=== PATIENT | female | born 1935 | race Caucasian/White ===

== ENCOUNTER 2018-01-10 01:55 | Emergency (ER) | payer MEDICARE, OTHER ==
[~2018-01-10] VITALS: Ht 167.6 cm; Wt 60.0 kg
[~2018-01-10 01:55] MED LIST: ATE25T PO; COU1T PO; LEVO50TA67 PO; MULT-1073 PO; NOR5T PO; OMEG1CAP46 PO; SIMV10TA2 PO; VALS1TAB PO; VENL-191 PO
[2018-01-10] MEDS ORDERED: morphine 4 MG/ML inj SYRINge IV ONE (02:20)
[2018-01-10] MEDS ORDERED: ondansetron/PF 4mg/2ml inj IV ONE (02:20)
[2018-01-10] MEDS ORDERED: hydrALAZINE 20mg/ml inj. IV ONE (02:20)
[2018-01-10] MEDS ORDERED: normal saline 1000ML IV soln IVB ONE (02:20)
[2018-01-10 02:39] LABS: BASOPHILS % (AUTO) 0.3 % (0-1); EOSINOPHILS % (AUTO) 0 % (0-6); HEMATOCRIT 42.9 % (35.0-45.0); HEMOGLOBIN 14.6 g/dl (12.0-16.0); LYMPHOCYTES # (AUTO) 1.1 X10'3 (1.1-4.8); LYMPHOCYTES % (AUTO) 10.7 % (21-51); MEAN CORPUSCULAR HEMOGLOBIN 31.2 PG (27.0-31.0); MEAN CORPUSCULAR HGB CONC 34.1 % (33.0-36.5); MEAN CORPUSCULAR VOLUME 91.5 FL (78-98); MEAN PLATELET VOLUME 8.5 FL (7.4-10.4); MONOCYTES # (AUTO) 0.3 X10'3 (0-0.9); MONOCYTES % (AUTO) 2.6 % (2-12); NEUTROPHILS # (AUTO) 8.8 X10'3 (1.8-7.7); NEUTROPHILS % (AUTO) 86.4 % (42-75); PLATELET COUNT 196 X10'3 (140-440); RED BLOOD COUNT 4.69 X10'6 (4.20-5.60); RED CELL DISTRIBUTION WIDTH 13.2 % (11.5-14.5); WHITE BLOOD COUNT 10.2 X10'3 (4.5-11.0)
[2018-01-10 02:54] LABS: ALANINE AMINOTRANSFERASE 24 U/L (12-78); ALBUMIN 3.4 G/DL (3.4-5.0); ALBUMIN/GLOBULIN RATIO 0.7 (1.1-1.5); ALKALINE PHOSPHATASE 78 IU/L (46-116); ANION GAP 10 (8-16); ASPARTATE AMINO TRANSFERASE 24 U/L (10-37); BILIRUBIN,TOTAL 0.4 MG/DL (0.1-1.0); BLOOD UREA NITROGEN 21 MG/DL (7-18); BUN/CREATININE RATIO 18.9 (6.6-38.0); CALCIUM 9.7 MG/DL (8.5-10.1); CHLORIDE 104 MMOL/L (99-107); CREATININE 1.11 MG/DL (0.40-0.90); GLUCOSE 181 MG/DL (70-104); LIPASE 58 U/L (73-393); POTASSIUM 3.7 MMOL/L (3.5-5.1); SODIUM 143 MMOL/L (135-145); TOTAL CARBON DIOXIDE 28.8 MMOL/L (24-32); TOTAL PROTEIN 8.4 G/DL (6.4-8.2); eGFR 47 ML/MIN
[2018-01-10 03:02] VITALS: BP 145/57
[2018-01-10] MEDS ORDERED: ONDA4TAB9 PO (03:23)
[2018-01-10] MEDS ORDERED: ESOM40CA30 PO (16:56)
[2018-01-10] MEDS ORDERED: AFLI2VIA RIGHTEYE (16:56)
[2018-01-10] MEDS ORDERED: ASPI-611 PO (16:56)
[2018-01-10] MEDS ORDERED: DONE10TA6 PO (16:56)
[2018-01-10] MEDS ORDERED: NEBI5TAB10 PO (16:56)
[2018-01-10] MEDS ORDERED: DORZ10DR18 RIGHTEYE (16:56)
[2018-01-10] MEDS ORDERED: EST1T PO (16:56)
[2018-01-10] MEDS ORDERED: GABA-532 PO (16:56)
[2018-01-10] MEDS ORDERED: VALS1TAB75 PO (17:02)
[2018-01-11] MEDS ORDERED: DORZ10DR18 RIGHTEYE (14:54)
[2018-01-11] MEDS ORDERED: FLUO10CA30 PO (15:02)
[2018-01-11] MEDS ORDERED: METO-539 PO (15:02)
== END 2018-01-10 03:39 | disposition home or self-care (01) ==
LOC: ER 01:56
DX: T62.8X1A Toxic effect of other specified noxious substances eaten as food, accidental (unintentional), initial encounter (principal); R19.7 Diarrhea, unspecified; E78.00 Pure hypercholesterolemia, unspecified; G89.29 Other chronic pain; Z90.710 Acquired absence of both cervix and uterus; Z98.890 Other specified postprocedural states; Z79.01 Long term (current) use of anticoagulants; Z79.899 Other long term (current) drug therapy; Y92.89 Other specified places as the place of occurrence of the external cause
CPT/HCPCS: 36415; 80053; 83690; 85025; 96374; 96375; 99284; J0360; J2270; J2405; J7030

== ENCOUNTER 2018-01-10 14:09 | Inpatient (IN) | payer MEDICARE, OTHER ==
[~2018-01-10] VITALS: Ht 167.6 cm; Wt 59.8 kg
[~2018-01-10 14:09] MED LIST changes: +ONDA4TAB9 PO
[2018-01-10 15:07] LABS: BASOPHILS % (AUTO) 0.4 % (0-1); EOSINOPHILS % (AUTO) 0 % (0-6); HEMATOCRIT 43.5 % (35.0-45.0); HEMOGLOBIN 14.5 g/dl (12.0-16.0); LYMPHOCYTES # (AUTO) 0.8 X10'3 (1.1-4.8); LYMPHOCYTES % (AUTO) 7.1 % (21-51); MEAN CORPUSCULAR HEMOGLOBIN 31.1 PG (27.0-31.0); MEAN CORPUSCULAR HGB CONC 33.3 % (33.0-36.5); MEAN CORPUSCULAR VOLUME 93.6 FL (78-98); MEAN PLATELET VOLUME 8.8 FL (7.4-10.4); MONOCYTES # (AUTO) 0.4 X10'3 (0-0.9); MONOCYTES % (AUTO) 3.9 % (2-12); NEUTROPHILS # (AUTO) 9.4 X10'3 (1.8-7.7); NEUTROPHILS % (AUTO) 88.6 % (42-75); PLATELET COUNT 204 X10'3 (140-440); RED BLOOD COUNT 4.65 X10'6 (4.20-5.60); WHITE BLOOD COUNT 10.6 X10'3 (4.5-11.0)
[2018-01-10 15:13] LABS: ALANINE AMINOTRANSFERASE 25 U/L (12-78); ALBUMIN 3.2 G/DL (3.4-5.0); ALBUMIN/GLOBULIN RATIO 0.7 (1.1-1.5); ALKALINE PHOSPHATASE 73 IU/L (46-116); ANION GAP 8 (8-16); ASPARTATE AMINO TRANSFERASE 20 U/L (10-37); BILIRUBIN,TOTAL 0.5 MG/DL (0.1-1.0); BLOOD UREA NITROGEN 19 MG/DL (7-18); BUN/CREATININE RATIO 19.2 (6.6-38.0); CALCIUM 9.1 MG/DL (8.5-10.1); CHLORIDE 104 MMOL/L (99-107); CREATININE 0.99 MG/DL (0.40-0.90); GLUCOSE 157 MG/DL (70-104); POTASSIUM 3.7 MMOL/L (3.5-5.1); SODIUM 140 MMOL/L (135-145); TOTAL CARBON DIOXIDE 28.3 MMOL/L (24-32); TOTAL PROTEIN 8.1 G/DL (6.4-8.2); eGFR 53 ML/MIN
[2018-01-10 15:33] LABS: CLARITY,URINE SLIGHTLY CLOUDY (Clear); COLOR,URINE YELLOW (Yellow); GLUCOSE, URINE NEGATIVE (Neg); KETONES,URINE NEGATIVE (Neg); LEUKOCYTE ESTERASE ,URINE NEGATIVE (Neg); NITRITES, URINE NEGATIVE (Neg); OCCULT BLOOD,URINE NEGATIVE (Neg); PROTEIN,URINE 30 mg/dl (Neg); UROBILINOGEN,URINE 0.2 E.U/dL (0.2-1.0)
[2018-01-10 15:37] LABS: UA COLLECTION TYPE CLN CATCH MIDSTREAM
[2018-01-10 15:45] LABS: BACTERIA,URINE 2+ /HPF (Neg); RBC,URINE 0-2 /HPF (0-2); SQUAMOUS EPITHELIAL CELL,UR MANY /LPF (FEW)
[2018-01-10] MEDS ORDERED: mag hydrox/Alum hydrox/simeth 30ml oral suspension PO PRN (16:40)
[2018-01-10] MEDS ORDERED: ondansetron/PF 4mg/2ml inj IV PRN (16:40)
[2018-01-10] MEDS ORDERED: magnesium hydroxide 30ml (MOM) UD suspension PO PRN (16:40)
[2018-01-10 16:50] LABS: MAGNESIUM 1.7 MG/DL (1.5-2.4); PARTIAL THROMBOPLASTIN TIME 25 SECONDS (22-32)
[2018-01-10] MEDS ORDERED: DORZ10DR18 RIGHTEYE (16:56)
[2018-01-10] MEDS ORDERED: ESOM40CA30 PO (16:56)
[2018-01-10] MEDS ORDERED: NEBI5TAB10 PO (16:56)
[2018-01-10] MEDS ORDERED: DONE10TA6 PO (16:56)
[2018-01-10] MEDS ORDERED: ASPI-611 PO (16:56)
[2018-01-10] MEDS ORDERED: GABA-532 PO (16:56)
[2018-01-10] MEDS ORDERED: AFLI2VIA RIGHTEYE (16:56)
[2018-01-10] MEDS ORDERED: EST1T PO (16:56)
[2018-01-10] MEDS ORDERED: VALS1TAB75 PO (17:02)
[2018-01-10] MEDS: normal saline 1000ml 1,000 ML IV SCH (17:20)
[2018-01-10 19:00] VITALS: BP 152/64
[2018-01-10] MEDS: acetaminophen 325mg tablet PO PRN (20:57)
[2018-01-10] MEDS: atorvastatin 10mg tablet PO SCH (20:57)
[2018-01-10] MEDS: diatr meglu/diatrizoate 30ml oral sol.-(3 dose) bottle PO SCH (20:58)
[2018-01-10 23:00] VITALS: BP 170/66
[2018-01-11] MEDS: morphine 4 MG/ML inj SYRINge IV PRN ×4 (02:31→20:47)
[2018-01-11] MEDS: normal saline 1000ml 1,000 ML IV SCH ×3 (02:37→22:37)
[2018-01-11 03:00] VITALS: BP 169/71
[2018-01-11] MEDS: acetaminophen 325mg tablet PO PRN ×2 (04:41→08:51)
[2018-01-11 05:28] LABS: ALBUMIN 2.9 G/DL (3.4-5.0); ANION GAP 5 (8-16); BASOPHILS % (AUTO) 0.1 % (0-1); BLOOD UREA NITROGEN 18 MG/DL (7-18); BUN/CREATININE RATIO 19.6 (6.6-38.0); CALCIUM 8.4 MG/DL (8.5-10.1); CHLORIDE 105 MMOL/L (99-107); CREATININE 0.92 MG/DL (0.40-0.90); EOSINOPHILS % (AUTO) 0 % (0-6); GLUCOSE 152 MG/DL (70-104); HEMATOCRIT 41.1 % (35.0-45.0); HEMOGLOBIN 13.8 g/dl (12.0-16.0); LYMPHOCYTES # (AUTO) 1.3 X10'3 (1.1-4.8); LYMPHOCYTES % (AUTO) 10.6 % (21-51); MEAN CORPUSCULAR HGB CONC 33.6 % (33.0-36.5); MEAN CORPUSCULAR VOLUME 92.2 FL (78-98); MEAN PLATELET VOLUME 9.2 FL (7.4-10.4); MONOCYTES # (AUTO) 0.5 X10'3 (0-0.9); MONOCYTES % (AUTO) 4.3 % (2-12); NEUTROPHILS # (AUTO) 10.4 X10'3 (1.8-7.7); PLATELET COUNT 197 X10'3 (140-440); POTASSIUM 3.6 MMOL/L (3.5-5.1); RED BLOOD COUNT 4.46 X10'6 (4.20-5.60); RED CELL DISTRIBUTION WIDTH 13.2 % (11.5-14.5); SODIUM 139 MMOL/L (135-145); TOTAL CARBON DIOXIDE 29.5 MMOL/L (24-32); WHITE BLOOD COUNT 12.3 X10'3 (4.5-11.0); eGFR 58 ML/MIN
[2018-01-11 06:00] VITALS: BP 169/71
[2018-01-11] MEDS ORDERED: FISH OIL PO SCH ×2 (08:00)
[2018-01-11] MEDS ORDERED: FATTY ACIDS PO SCH (08:00)
[2018-01-11] MEDS ORDERED: [UNRECOGNIZED DRUG - OTHER] PO SCH (08:00)
[2018-01-11] MEDS ORDERED: atenolol 25mg tablet PO SCH (08:00)
[2018-01-11] MEDS ORDERED: PHYTONADIONE PO SCH (08:00)
[2018-01-11] MEDS ORDERED: OMEGA PO SCH (08:00)
[2018-01-11] MEDS ORDERED: CALCIUM CARBONATE PO SCH (08:00)
[2018-01-11] MEDS ORDERED: MULTIVITAMIN PO SCH (08:00)
[2018-01-11] MEDS ORDERED: FOLIC ACID PO SCH (08:00)
[2018-01-11] MEDS: diatr meglu/diatrizoate 30ml oral sol.-(3 dose) bottle PO SCH ×2 (08:31→10:45)
[2018-01-11] MEDS: venlafaxine 37.5mg tablet PO SCH (08:31)
[2018-01-11] MEDS: multivitamins, therapeutics tablet PO SCH (08:31)
[2018-01-11] MEDS ORDERED: amLODIPine 5mg tablet PO ONE (08:35)
[2018-01-11] MEDS ORDERED: acetaminophen 325mg tablet PO PRN (08:35)
[2018-01-11] MEDS ORDERED: iohexol 300mg/ml 100ml inj. ONE (10:11)
[2018-01-11 11:00] VITALS: BP 186/65
[2018-01-11] MEDS ORDERED: DORZ10DR18 RIGHTEYE (14:54)
[2018-01-11 15:00] VITALS: BP 184/86
[2018-01-11] MEDS ORDERED: METO-539 PO (15:02)
[2018-01-11] MEDS ORDERED: FLUO10CA30 PO (15:02)
[2018-01-11 19:00] VITALS: BP 165/67
[2018-01-11] MEDS: atorvastatin 10mg tablet PO SCH (20:17)
[2018-01-11 23:00] VITALS: BP 157/64
[2018-01-12] VITALS (11 sets, daily range): BP systolic 125–177; BP diastolic 62–107
[2018-01-12] MEDS: morphine 4 MG/ML inj SYRINge IV PRN ×3 (03:14→18:56)
[2018-01-12 05:41] LABS: BASOPHILS % (AUTO) 0.2 % (0-1); EOSINOPHILS % (AUTO) 0.1 % (0-6); HEMOGLOBIN 13.4 g/dl (12.0-16.0); LYMPHOCYTES # (AUTO) 1.6 X10'3 (1.1-4.8); LYMPHOCYTES % (AUTO) 16.2 % (21-51); MEAN CORPUSCULAR HEMOGLOBIN 31.2 PG (27.0-31.0); MEAN CORPUSCULAR HGB CONC 34.4 % (33.0-36.5); MEAN CORPUSCULAR VOLUME 90.6 FL (78-98); MEAN PLATELET VOLUME 9.1 FL (7.4-10.4); MONOCYTES # (AUTO) 1.1 X10'3 (0-0.9); MONOCYTES % (AUTO) 11.2 % (2-12); NEUTROPHILS % (AUTO) 72.3 % (42-75); PLATELET COUNT 185 X10'3 (140-440); RED CELL DISTRIBUTION WIDTH 13.1 % (11.5-14.5); WHITE BLOOD COUNT 9.7 X10'3 (4.5-11.0)
[2018-01-12 05:45] LABS: ALBUMIN 2.6 G/DL (3.4-5.0); ANION GAP 8 (8-16); BLOOD UREA NITROGEN 12 MG/DL (7-18); CALCIUM 7.7 MG/DL (8.5-10.1); CHLORIDE 104 MMOL/L (99-107); CREATININE 0.75 MG/DL (0.40-0.90); GLUCOSE 126 MG/DL (70-104); SODIUM 139 MMOL/L (135-145); TOTAL CARBON DIOXIDE 27.3 MMOL/L (24-32); eGFR 74 ML/MIN
[2018-01-12] MEDS: multivitamins, therapeutics tablet PO SCH (08:00)
[2018-01-12] MEDS ORDERED: potassium Cl 20 mEq SR tablet PO PRN ×2 (08:20)
[2018-01-12] MEDS ORDERED: potassium Cl 40MEQ/NS 500ml 500 ML IV PRN ×2 (08:20)
[2018-01-12] MEDS: hydrALAZINE 20mg/ml inj. IV PRN (12:20)
[2018-01-12] MEDS ORDERED: BUPIVAcaine/PF 7.5mg/ml (0.75%) 10ml vial ONE (13:56)
[2018-01-12] MEDS ORDERED: LIDOcaine 1% 30ml preserv. free vial ONE (13:56)
[2018-01-12] MEDS: normal saline 1000ml 1,000 ML IV SCH ×2 (14:00→19:43)
[2018-01-12] MEDS ORDERED: sevoflurane 250ml liquid IH ONE (14:40)
[2018-01-12] MEDS ORDERED: fentaNYL/PF 50MCG/1 ML 2ML syringe ONE ×3 (14:43→17:30)
[2018-01-12] MEDS ORDERED: HYDROmorphone 1 mg/ml syringe IV PRN ×2 (15:25→18:20)
[2018-01-12] MEDS ORDERED: ringers solution, lacted 1,000 ML IV SCH (15:25)
[2018-01-12] MEDS ORDERED: ondansetron/PF 4mg/2ml inj IV PRN ×2 (15:25→18:20)
[2018-01-12] MEDS ORDERED: morphine 4 MG/ML inj SYRINge IV PRN ×2 (15:25→18:20)
[2018-01-12] MEDS ORDERED: ROPIVAcaine 0.5% (5mg/ml) 30ml vial ONE (16:36)
[2018-01-12] MEDS ORDERED: glycopyrrolate 0.2mg/ml inj ONE (17:34)
[2018-01-12] MEDS ORDERED: rocuronium 10mg/ml inj IV ONE ×2 (17:34→18:05)
[2018-01-12] MEDS ORDERED: dexamethasone sod phosphate 4mg/ml inj. ONE (17:34)
[2018-01-12] MEDS ORDERED: neostigmine methylsulfate 1 MG/ML 10ml vial ONE (17:34)
[2018-01-12] MEDS ORDERED: propofol inj 20 ML IV ONE (17:34)
[2018-01-12] MEDS ORDERED: LIDOcaine 2% (20mg/ml) 5ml vial ONE (17:34)
[2018-01-12] MEDS ORDERED: ondansetron/PF 4mg/2ml inj ONE (17:34)
[2018-01-12] MEDS ORDERED: CADD PCA waste documentation MC PRN (18:40)
[2018-01-12] MEDS ORDERED: naloxone 0.4 mg/ml inj IV PRN (18:40)
[2018-01-12] MEDS: HYDROmorphone/NS 1 mg/ml CADD 50 ML IV SCH ×4 (19:00→23:00)
[2018-01-12] MEDS: atorvastatin 10mg tablet PO SCH (21:00)
[2018-01-13] VITALS: BP 136/69
[2018-01-13] MEDS: HYDROmorphone/NS 1 mg/ml CADD 50 ML IV SCH ×6 (01:00→10:57)
[2018-01-13 04:15] VITALS: BP 130/64
[2018-01-13] MEDS: normal saline 1000ml 1,000 ML IV SCH ×3 (04:37→17:24)
[2018-01-13 05:50] LABS: BASOPHILS % (AUTO) 0 % (0-1); EOSINOPHILS % (AUTO) 0 % (0-6); HEMATOCRIT 38.9 % (35.0-45.0); HEMOGLOBIN 13.1 g/dl (12.0-16.0); LYMPHOCYTES # (AUTO) 1.1 X10'3 (1.1-4.8); LYMPHOCYTES % (AUTO) 9.6 % (21-51); MEAN CORPUSCULAR HEMOGLOBIN 31.1 PG (27.0-31.0); MEAN CORPUSCULAR HGB CONC 33.7 % (33.0-36.5); MEAN CORPUSCULAR VOLUME 92.3 FL (78-98); MONOCYTES # (AUTO) 0.8 X10'3 (0-0.9); MONOCYTES % (AUTO) 7.5 % (2-12); NEUTROPHILS # (AUTO) 9.3 X10'3 (1.8-7.7); NEUTROPHILS % (AUTO) 82.9 % (42-75); PLATELET COUNT 182 X10'3 (140-440); RED BLOOD COUNT 4.22 X10'6 (4.20-5.60); RED CELL DISTRIBUTION WIDTH 13.2 % (11.5-14.5); WHITE BLOOD COUNT 11.3 X10'3 (4.5-11.0)
[2018-01-13 05:54] LABS: ANION GAP 6 (8-16); BLOOD UREA NITROGEN 18 MG/DL (7-18); BUN/CREATININE RATIO 14.8 (6.6-38.0); CALCIUM 7.2 MG/DL (8.5-10.1); CHLORIDE 107 MMOL/L (99-107); CREATININE 1.22 MG/DL (0.40-0.90); GLUCOSE 107 MG/DL (70-104); MAGNESIUM 1.5 MG/DL (1.5-2.4); POTASSIUM 3.5 MMOL/L (3.5-5.1); SODIUM 142 MMOL/L (135-145); TOTAL CARBON DIOXIDE 29.4 MMOL/L (24-32); eGFR 42 ML/MIN
[2018-01-13 07:22] LABS: BANDS% (MANUAL) 15 % (0-10); LYMPHOCYTES % (MANUAL) 4 % (21-51); MONOCYTES % (MANUAL) 9 % (2-12); NEUTROPHILS % (MANUAL) 72 % (42-75); TOTAL CELLS COUNTED 100
[2018-01-13 07:23] LABS: PLATELET ESTIMATE NORMAL
[2018-01-13 08:00] VITALS: BP 101/62
[2018-01-13] MEDS: multivitamins, therapeutics tablet PO SCH (08:00)
[2018-01-13] MEDS ORDERED: HYDROmorphone 2mg/ml vial IV PRN ×2 (10:25)
[2018-01-13] MEDS: venlafaxine 37.5mg tablet PO SCH (10:48)
[2018-01-13 11:00] VITALS: BP 137/63
[2018-01-13] MEDS: HYDROmorphone 1 mg/ml syringe IV PRN ×3 (12:51→20:42)
[2018-01-13 19:05] VITALS: BP 155/71
[2018-01-13] MEDS: atorvastatin 10mg tablet PO SCH (20:42)
[2018-01-14 00:24] VITALS: BP 151/67
[2018-01-14] MEDS: HYDROmorphone 1 mg/ml syringe IV PRN ×5 (01:02→22:01)
[2018-01-14] MEDS: normal saline 1000ml 1,000 ML IV SCH ×3 (01:52→23:30)
[2018-01-14 05:10] LABS: BASOPHILS % (AUTO) 0 % (0-1); EOSINOPHILS % (AUTO) 0 % (0-6); HEMATOCRIT 37.3 % (35.0-45.0); HEMOGLOBIN 12.5 g/dl (12.0-16.0); LYMPHOCYTES % (AUTO) 6.9 % (21-51); MEAN CORPUSCULAR HGB CONC 33.6 % (33.0-36.5); MEAN CORPUSCULAR VOLUME 92.2 FL (78-98); MEAN PLATELET VOLUME 8.7 FL (7.4-10.4); MONOCYTES # (AUTO) 1.1 X10'3 (0-0.9); NEUTROPHILS # (AUTO) 12.2 X10'3 (1.8-7.7); NEUTROPHILS % (AUTO) 85.1 % (42-75); PLATELET COUNT 163 X10'3 (140-440); RED BLOOD COUNT 4.05 X10'6 (4.20-5.60); RED CELL DISTRIBUTION WIDTH 13.6 % (11.5-14.5); WHITE BLOOD COUNT 14.3 X10'3 (4.5-11.0)
[2018-01-14 05:49] LABS: ALBUMIN 1.9 G/DL (3.4-5.0); ANION GAP 10 (8-16); BLOOD UREA NITROGEN 16 MG/DL (7-18); CALCIUM 7.6 MG/DL (8.5-10.1); CHLORIDE 109 MMOL/L (99-107); CREATININE 0.89 MG/DL (0.40-0.90); GLUCOSE 87 MG/DL (70-104); MAGNESIUM 1.6 MG/DL (1.5-2.4); POTASSIUM 3.1 MMOL/L (3.5-5.1); SODIUM 144 MMOL/L (135-145); TOTAL CARBON DIOXIDE 24.8 MMOL/L (24-32); eGFR 60 ML/MIN
[2018-01-14 07:21] VITALS: BP 183/90
[2018-01-14 07:22] VITALS: BP 165/86
[2018-01-14] MEDS ORDERED: HYDROCHLOROTHIAZIDE PO SCH (08:00)
[2018-01-14] MEDS ORDERED: [UNRECOGNIZED DRUG - OTHER] PO SCH (08:00)
[2018-01-14] MEDS ORDERED: VALSARTAN PO SCH (08:00)
[2018-01-14] MEDS: ipratropium/albuterol 3ml nebule NEB SCH ×3 (08:14→20:56)
[2018-01-14] MEDS ORDERED: multivitamin oral liquid (Certavite) 5ml cup PO SCH (08:51)
[2018-01-14] MEDS ORDERED: potassium Cl oral solution 20 MEQ/15 ML PO PRN (08:52)
[2018-01-14] MEDS ORDERED: pantoprazole 40MG/NS 100ML BAG 100 ML IV SCH (08:55)
[2018-01-14] MEDS: cefepime 1GM/NS ADD-VANTAGE 100 ML IV SCH ×3 (09:18→23:29)
[2018-01-14] MEDS: gabapentin 300mg capsule PO SCH ×3 (09:20→23:29)
[2018-01-14] MEDS: venlafaxine 37.5mg tablet PO SCH (09:20)
[2018-01-14] MEDS: levoTHYROXINE 75mcg tablet PO SCH (09:21)
[2018-01-14] MEDS: HYDROchlorothiazide 12.5mg capsule PO SCH (09:21)
[2018-01-14] MEDS: dorzolamide/timolol (Cosopt) ophthalmic drops 10ml bottle RIGHTEYE SCH ×2 (09:22→19:41)
[2018-01-14] MEDS: potassium Cl oral solution 20 MEQ/15 ML PO PRN ×3 (09:23→20:40)
[2018-01-14] MEDS: FLUoxetine 10mg capsule PO SCH (10:28)
[2018-01-14] MEDS: pantoprazole 40 MG vial IV SCH (10:28)
[2018-01-14 11:36] VITALS: BP 166/77
[2018-01-14 18:00] VITALS: BP 177/84
[2018-01-14] MEDS: hydrALAZINE 20mg/ml inj. IV PRN (18:37)
[2018-01-14 19:05] VITALS: BP 164/62
[2018-01-14] MEDS: atorvastatin 10mg tablet PO SCH (19:39)
[2018-01-14 21:11] LABS: CLARITY,URINE CLEAR (Clear); COLOR,URINE YELLOW (Yellow); GLUCOSE, URINE NEGATIVE (Neg); KETONES,URINE 40 mg/dl (Neg); LEUKOCYTE ESTERASE ,URINE NEGATIVE (Neg); NITRITES, URINE NEGATIVE (Neg); OCCULT BLOOD,URINE MODERATE (Neg); PROTEIN,URINE TRACE mg/dl (Neg); UROBILINOGEN,URINE 0.2 E.U/dL (0.2-1.0)
[2018-01-14 21:17] LABS: UA COLLECTION TYPE NON-SPECIFIED
[2018-01-14 21:18] LABS: RBC,URINE 20-50 /HPF (0-2); WBC,URINE 0-4 /HPF (0-4)
[2018-01-14 21:19] LABS: BACTERIA,URINE NONE SEEN /HPF (Neg); SQUAMOUS EPITHELIAL CELL,UR FEW /LPF (FEW); YEAST FEW /HPF (NEGATIVE)
[2018-01-14] MEDS ORDERED: HYDROmorphone 1 mg/ml syringe IV ONE (23:50)
[2018-01-15] VITALS: BP 166/75
[2018-01-15] MEDS: HYDROmorphone 1 mg/ml syringe IV PRN ×4 (01:23→22:06)
[2018-01-15] MEDS: ipratropium/albuterol 3ml nebule NEB SCH ×4 (02:31→21:17)
[2018-01-15 04:55] LABS: BASOPHILS % (AUTO) 0.2 % (0-1); EOSINOPHILS % (AUTO) 0 % (0-6); HEMATOCRIT 37.1 % (35.0-45.0); HEMOGLOBIN 12.4 g/dl (12.0-16.0); LYMPHOCYTES # (AUTO) 1.1 X10'3 (1.1-4.8); LYMPHOCYTES % (AUTO) 6.7 % (21-51); MEAN CORPUSCULAR HEMOGLOBIN 30.8 PG (27.0-31.0); MEAN CORPUSCULAR HGB CONC 33.4 % (33.0-36.5); MEAN CORPUSCULAR VOLUME 92.3 FL (78-98); MEAN PLATELET VOLUME 8.4 FL (7.4-10.4); MONOCYTES # (AUTO) 0.9 X10'3 (0-0.9); MONOCYTES % (AUTO) 5.2 % (2-12); NEUTROPHILS # (AUTO) 14.7 X10'3 (1.8-7.7); NEUTROPHILS % (AUTO) 87.9 % (42-75); PLATELET COUNT 199 X10'3 (140-440); RED BLOOD COUNT 4.02 X10'6 (4.20-5.60); RED CELL DISTRIBUTION WIDTH 13.4 % (11.5-14.5); WHITE BLOOD COUNT 16.7 X10'3 (4.5-11.0)
[2018-01-15 05:16] LABS: ALBUMIN 1.6 G/DL (3.4-5.0); ANION GAP 12 (8-16); BLOOD UREA NITROGEN 14 MG/DL (7-18); BUN/CREATININE RATIO 17.1 (6.6-38.0); CHLORIDE 107 MMOL/L (99-107); CREATININE 0.82 MG/DL (0.40-0.90); GLUCOSE 96 MG/DL (70-104); MAGNESIUM 1.7 MG/DL (1.5-2.4); POTASSIUM 3.3 MMOL/L (3.5-5.1); SODIUM 141 MMOL/L (135-145); TOTAL CARBON DIOXIDE 22.2 MMOL/L (24-32); eGFR 66 ML/MIN
[2018-01-15 07:00] VITALS: BP 181/82
[2018-01-15] MEDS ORDERED: pantoprazole 40mg Tablet.DR PO SCH (07:30)
[2018-01-15] MEDS: pantoprazole 40 MG vial IV SCH (07:46)
[2018-01-15] MEDS: morphine 4 MG/ML inj SYRINge IV PRN ×2 (07:46→21:02)
[2018-01-15] MEDS: cefepime 1GM/NS ADD-VANTAGE 100 ML IV SCH ×3 (07:46→23:28)
[2018-01-15] MEDS: FLUoxetine 10mg capsule PO SCH (07:47)
[2018-01-15] MEDS: levoTHYROXINE 75mcg tablet PO SCH (07:47)
[2018-01-15] MEDS: HYDROchlorothiazide 12.5mg capsule PO SCH (07:47)
[2018-01-15] MEDS: gabapentin 300mg capsule PO SCH ×3 (07:47→23:28)
[2018-01-15] MEDS: venlafaxine 37.5mg tablet PO SCH (07:48)
[2018-01-15] MEDS: dorzolamide/timolol (Cosopt) ophthalmic drops 10ml bottle RIGHTEYE SCH ×2 (07:48→21:02)
[2018-01-15 09:51] VITALS: BP 188/88
[2018-01-15] MEDS: hydrALAZINE 20mg/ml inj. IV PRN (09:56)
[2018-01-15 11:00] VITALS: BP 170/58
[2018-01-15] MEDS: normal saline 1000ml 1,000 ML IV SCH ×2 (11:55→22:34)
[2018-01-15] MEDS ORDERED: Dextrose 10%-water IV solution 1,000 ML IV PRN (14:36)
[2018-01-15] MEDS ORDERED: fat emulsion IV 181.82 ML, MVI, adult No.4 with vit. K 4.55 ML, Trace element-5 inj. 0.... IV SCH ×4 (14:36)
[2018-01-15] MEDS ORDERED: magnesium 1gm/100ml D5W IVPB 50 ML IV PRN (14:40)
[2018-01-15] MEDS ORDERED: magnesium 4gm in 100ml NS 100 ML IV PRN (14:40)
[2018-01-15] MEDS ORDERED: magnesium Cl slow-release 64mg tablet PO PRN (14:40)
[2018-01-15] MEDS ORDERED: fat emulsion IV 200 ML, MVI, adult No.4 with vit. K 10 ML, Trace element-5 inj. 1 ML in... IV SCH ×4 (16:05)
[2018-01-15 16:35] LABS: ALANINE AMINOTRANSFERASE 14 U/L (12-78); ALBUMIN 1.7 G/DL (3.4-5.0); ALBUMIN/GLOBULIN RATIO 0.4 (1.1-1.5); ALKALINE PHOSPHATASE 72 IU/L (46-116); ANION GAP 9 (8-16); ASPARTATE AMINO TRANSFERASE 21 U/L (10-37); BILIRUBIN,TOTAL 0.6 MG/DL (0.1-1.0); BLOOD UREA NITROGEN 14 MG/DL (7-18); BUN/CREATININE RATIO 17.5 (6.6-38.0); CALCIUM 7.7 MG/DL (8.5-10.1); CHLORIDE 104 MMOL/L (99-107); GLUCOSE 84 MG/DL (70-104); MAGNESIUM 1.8 MG/DL (1.5-2.4); PHOSPHORUS 1.8 MG/DL (2.3-4.5); POTASSIUM 3.3 MMOL/L (3.5-5.1); PREALBUMIN 8.4 MG/DL (19-36); SODIUM 139 MMOL/L (135-145); TOTAL CARBON DIOXIDE 25.6 MMOL/L (24-32); TRIGLYCERIDES 91 MG/DL (20-135); eGFR 68 ML/MIN
[2018-01-15] MEDS ORDERED: fat emulsion IV 100 ML, MVI, adult No.4 with vit. K 10 ML, Trace element-5 inj. 1 ML in... IV SCH ×4 (17:00)
[2018-01-15 19:52] VITALS: BP 174/85
[2018-01-15] MEDS: atorvastatin 10mg tablet PO SCH (21:02)
[2018-01-16 00:39] VITALS: BP 105/61
[2018-01-16] MEDS: HYDROmorphone 1 mg/ml syringe IV PRN ×3 (01:01→20:39)
[2018-01-16] MEDS: ipratropium/albuterol 3ml nebule NEB SCH ×4 (02:29→21:27)
[2018-01-16] MEDS ORDERED: potassium Cl 20 mEq SR tablet PO PRN (06:30)
[2018-01-16] MEDS ORDERED: potassium Cl 40MEQ/NS 500ml 500 ML IV PRN ×2 (06:30)
[2018-01-16 07:06] VITALS: BP 150/74
[2018-01-16 07:23] LABS: BASOPHILS % (AUTO) 0 % (0-1); EOSINOPHILS # (AUTO) 0.2 X10'3 (0-0.9); EOSINOPHILS % (AUTO) 1.3 % (0-6); HEMATOCRIT 37.8 % (35.0-45.0); HEMOGLOBIN 12.7 g/dl (12.0-16.0); LYMPHOCYTES # (AUTO) 1.6 X10'3 (1.1-4.8); LYMPHOCYTES % (AUTO) 9.9 % (21-51); MEAN CORPUSCULAR HGB CONC 33.6 % (33.0-36.5); MEAN CORPUSCULAR VOLUME 92.3 FL (78-98); MEAN PLATELET VOLUME 7.7 FL (7.4-10.4); MONOCYTES # (AUTO) 1.1 X10'3 (0-0.9); MONOCYTES % (AUTO) 7.2 % (2-12); NEUTROPHILS # (AUTO) 12.9 X10'3 (1.8-7.7); NEUTROPHILS % (AUTO) 81.6 % (42-75); PLATELET COUNT 224 X10'3 (140-440); RED BLOOD COUNT 4.09 X10'6 (4.20-5.60); RED CELL DISTRIBUTION WIDTH 13.5 % (11.5-14.5); WHITE BLOOD COUNT 15.8 X10'3 (4.5-11.0)
[2018-01-16 07:39] LABS: ALANINE AMINOTRANSFERASE 12 U/L (12-78); ALBUMIN 1.5 G/DL (3.4-5.0); ALBUMIN/GLOBULIN RATIO 0.4 (1.1-1.5); ALKALINE PHOSPHATASE 62 IU/L (46-116); ANION GAP 7 (8-16); ASPARTATE AMINO TRANSFERASE 21 U/L (10-37); BILIRUBIN,TOTAL 0.5 MG/DL (0.1-1.0); BLOOD UREA NITROGEN 17 MG/DL (7-18); BUN/CREATININE RATIO 24.3 (6.6-38.0); CALCIUM 7.9 MG/DL (8.5-10.1); CHLORIDE 106 MMOL/L (99-107); GLUCOSE 113 MG/DL (70-104); MAGNESIUM 1.6 MG/DL (1.5-2.4); PHOSPHORUS 1.3 MG/DL (2.3-4.5); POTASSIUM 3.3 MMOL/L (3.5-5.1); SODIUM 140 MMOL/L (135-145); TOTAL PROTEIN 5.7 G/DL (6.4-8.2); eGFR 80 ML/MIN
[2018-01-16] MEDS: K and/or MAG REPLACEMENT MC SCH (08:00)
[2018-01-16] MEDS: FLUoxetine 10mg capsule PO SCH (08:18)
[2018-01-16] MEDS: dorzolamide/timolol (Cosopt) ophthalmic drops 10ml bottle RIGHTEYE SCH ×2 (08:18→20:30)
[2018-01-16] MEDS: pantoprazole 40 MG vial IV SCH (08:18)
[2018-01-16] MEDS: cefepime 1GM/NS ADD-VANTAGE 100 ML IV SCH ×2 (08:18→15:10)
[2018-01-16] MEDS: levoTHYROXINE 75mcg tablet PO SCH (08:18)
[2018-01-16] MEDS: multivitamin oral liquid (Certavite) 5ml cup PO SCH (08:18)
[2018-01-16] MEDS: potassium Cl 20 mEq SR tablet PO PRN ×3 (08:19→17:14)
[2018-01-16] MEDS: gabapentin 300mg capsule PO SCH ×2 (08:19→15:10)
[2018-01-16] MEDS: venlafaxine 37.5mg tablet PO SCH (08:19)
[2018-01-16] MEDS: HYDROchlorothiazide 12.5mg capsule PO SCH (08:19)
[2018-01-16] MEDS: enoxaparin 40mg/0.4ml syringe SUBCUT SCH (08:20)
[2018-01-16] MEDS: normal saline 1000ml 1,000 ML IV SCH (08:27)
[2018-01-16 11:53] VITALS: BP 133/73
[2018-01-16] MEDS ORDERED: Dextrose 10%-water IV solution 1,000 ML IV PRN (13:08)
[2018-01-16] MEDS ORDERED: Neutra Phos packet PO ONE (13:20)
[2018-01-16 19:00] VITALS: BP 152/70
[2018-01-16] MEDS: atorvastatin 10mg tablet PO SCH (20:29)
[2018-01-16] MEDS: lactobacillus rhamnosus 10,000 MMU CELLS/CAPSULE PO SCH (20:29)
[2018-01-17] VITALS: BP 148/60
[2018-01-17] MEDS: gabapentin 300mg capsule PO SCH ×3 (00:45→15:10)
[2018-01-17] MEDS: cefepime 1GM/NS ADD-VANTAGE 100 ML IV SCH ×3 (00:45→15:10)
[2018-01-17] MEDS: ipratropium/albuterol 3ml nebule NEB SCH ×4 (03:27→20:37)
[2018-01-17 04:14] LABS: ALANINE AMINOTRANSFERASE 9 U/L (12-78); ALBUMIN 1.4 G/DL (3.4-5.0); ALBUMIN/GLOBULIN RATIO 0.3 (1.1-1.5); ALKALINE PHOSPHATASE 59 IU/L (46-116); ANION GAP 8 (8-16); ASPARTATE AMINO TRANSFERASE 18 U/L (10-37); BILIRUBIN,TOTAL 0.4 MG/DL (0.1-1.0); BLOOD UREA NITROGEN 16 MG/DL (7-18); BUN/CREATININE RATIO 21.6 (6.6-38.0); CALCIUM 7.8 MG/DL (8.5-10.1); CHLORIDE 101 MMOL/L (99-107); CREATININE 0.74 MG/DL (0.40-0.90); GLUCOSE 150 MG/DL (70-104); MAGNESIUM 1.6 MG/DL (1.5-2.4); PHOSPHORUS 1.5 MG/DL (2.3-4.5); POTASSIUM 3.4 MMOL/L (3.5-5.1); SODIUM 135 MMOL/L (135-145); TOTAL CARBON DIOXIDE 26.5 MMOL/L (24-32); TOTAL PROTEIN 5.5 G/DL (6.4-8.2); TRIGLYCERIDES 120 MG/DL (20-135); eGFR 75 ML/MIN
[2018-01-17 04:30] LABS: PREALBUMIN 9.3 MG/DL (19-36)
[2018-01-17 07:46] VITALS: BP 128/62
[2018-01-17] MEDS: K and/or MAG REPLACEMENT MC SCH (08:00)
[2018-01-17] MEDS: methylnaltrexone br 12mg/0.6ml inj***SubQ only SQ SCH (08:04)
[2018-01-17] MEDS: enoxaparin 40mg/0.4ml syringe SUBCUT SCH (08:05)
[2018-01-17] MEDS: potassium Cl 20 mEq SR tablet PO PRN ×3 (08:05→16:39)
[2018-01-17] MEDS: venlafaxine 37.5mg tablet PO SCH (08:06)
[2018-01-17] MEDS: lactobacillus rhamnosus 10,000 MMU CELLS/CAPSULE PO SCH ×2 (08:06→20:53)
[2018-01-17] MEDS: pantoprazole 40 MG vial IV SCH (08:06)
[2018-01-17] MEDS: levoTHYROXINE 75mcg tablet PO SCH (08:06)
[2018-01-17] MEDS: FLUoxetine 10mg capsule PO SCH (08:06)
[2018-01-17] MEDS: multivitamin oral liquid (Certavite) 5ml cup PO SCH (08:06)
[2018-01-17] MEDS: dorzolamide/timolol (Cosopt) ophthalmic drops 10ml bottle RIGHTEYE SCH ×2 (08:06→20:53)
[2018-01-17] MEDS: HYDROchlorothiazide 12.5mg capsule PO SCH (08:07)
[2018-01-17] MEDS: normal saline 1000ml 1,000 ML IV SCH (08:19)
[2018-01-17 09:59] LABS: BASOPHILS % (AUTO) 0.1 % (0-1); EOSINOPHILS # (AUTO) 0.1 X10'3 (0-0.9); EOSINOPHILS % (AUTO) 0.8 % (0-6); HEMATOCRIT 38.4 % (35.0-45.0); LYMPHOCYTES # (AUTO) 1.2 X10'3 (1.1-4.8); LYMPHOCYTES % (AUTO) 7.9 % (21-51); MEAN CORPUSCULAR HEMOGLOBIN 31.5 PG (27.0-31.0); MEAN CORPUSCULAR HGB CONC 33.9 % (33.0-36.5); MEAN CORPUSCULAR VOLUME 92.7 FL (78-98); MONOCYTES # (AUTO) 1.4 X10'3 (0-0.9); MONOCYTES % (AUTO) 8.9 % (2-12); NEUTROPHILS # (AUTO) 12.6 X10'3 (1.8-7.7); NEUTROPHILS % (AUTO) 82.3 % (42-75); PLATELET COUNT 228 X10'3 (140-440); RED BLOOD COUNT 4.14 X10'6 (4.20-5.60); RED CELL DISTRIBUTION WIDTH 13.3 % (11.5-14.5); WHITE BLOOD COUNT 15.4 X10'3 (4.5-11.0)
[2018-01-17 12:16] VITALS: BP 148/64
[2018-01-17] MEDS ORDERED: diatrizoate meglumine 300mg/ml (30%) 300ml UR ONE (13:27)
[2018-01-17] MEDS ORDERED: Neutra Phos packet PO ONE (14:05)
[2018-01-17 19:00] VITALS: BP 143/66
[2018-01-17] MEDS: atorvastatin 10mg tablet PO SCH (20:53)
[2018-01-18] MEDS: gabapentin 300mg capsule PO SCH ×3 (00:51→15:14)
[2018-01-18] MEDS: cefepime 1GM/NS ADD-VANTAGE 100 ML IV SCH ×3 (00:51→15:14)
[2018-01-18] MEDS: ipratropium/albuterol 3ml nebule NEB SCH ×3 (02:45→20:29)
[2018-01-18 06:28] LABS: BASOPHILS % (AUTO) 0.1 % (0-1); EOSINOPHILS # (AUTO) 0.2 X10'3 (0-0.9); EOSINOPHILS % (AUTO) 1.1 % (0-6); HEMATOCRIT 34.8 % (35.0-45.0); HEMOGLOBIN 11.9 g/dl (12.0-16.0); LYMPHOCYTES # (AUTO) 1.6 X10'3 (1.1-4.8); LYMPHOCYTES % (AUTO) 10.1 % (21-51); MEAN CORPUSCULAR HEMOGLOBIN 31.1 PG (27.0-31.0); MEAN CORPUSCULAR HGB CONC 34.2 % (33.0-36.5); MEAN CORPUSCULAR VOLUME 90.8 FL (78-98); MEAN PLATELET VOLUME 7.5 FL (7.4-10.4); MONOCYTES # (AUTO) 1.4 X10'3 (0-0.9); MONOCYTES % (AUTO) 8.7 % (2-12); NEUTROPHILS # (AUTO) 12.4 X10'3 (1.8-7.7); PLATELET COUNT 250 X10'3 (140-440); RED BLOOD COUNT 3.83 X10'6 (4.20-5.60); RED CELL DISTRIBUTION WIDTH 13.3 % (11.5-14.5); WHITE BLOOD COUNT 15.5 X10'3 (4.5-11.0)
[2018-01-18 06:44] LABS: ALANINE AMINOTRANSFERASE 19 U/L (12-78); ALBUMIN 1.6 G/DL (3.4-5.0); ALBUMIN/GLOBULIN RATIO 0.4 (1.1-1.5); ALKALINE PHOSPHATASE 74 IU/L (46-116); ANION GAP 4 (8-16); ASPARTATE AMINO TRANSFERASE 29 U/L (10-37); BILIRUBIN,TOTAL 0.4 MG/DL (0.1-1.0); BLOOD UREA NITROGEN 10 MG/DL (7-18); BUN/CREATININE RATIO 13.2 (6.6-38.0); CHLORIDE 102 MMOL/L (99-107); CREATININE 0.76 MG/DL (0.40-0.90); GLUCOSE 114 MG/DL (70-104); POTASSIUM 4.1 MMOL/L (3.5-5.1); SODIUM 134 MMOL/L (135-145); TOTAL CARBON DIOXIDE 27.6 MMOL/L (24-32); TOTAL PROTEIN 5.8 G/DL (6.4-8.2); eGFR 73 ML/MIN
[2018-01-18 07:07] VITALS: BP 146/67
[2018-01-18] MEDS: venlafaxine 37.5mg tablet PO SCH (07:51)
[2018-01-18] MEDS: enoxaparin 40mg/0.4ml syringe SUBCUT SCH (07:51)
[2018-01-18] MEDS: FLUoxetine 10mg capsule PO SCH (07:51)
[2018-01-18] MEDS: multivitamin oral liquid (Certavite) 5ml cup PO SCH (07:52)
[2018-01-18] MEDS: HYDROchlorothiazide 12.5mg capsule PO SCH (07:52)
[2018-01-18] MEDS: lactobacillus rhamnosus 10,000 MMU CELLS/CAPSULE PO SCH ×2 (07:52→20:33)
[2018-01-18] MEDS: levoTHYROXINE 75mcg tablet PO SCH (07:52)
[2018-01-18] MEDS: pantoprazole 40 MG vial IV SCH (07:53)
[2018-01-18] MEDS: dorzolamide/timolol (Cosopt) ophthalmic drops 10ml bottle RIGHTEYE SCH ×2 (07:53→20:33)
[2018-01-18] MEDS: K and/or MAG REPLACEMENT MC SCH (08:00)
[2018-01-18] MEDS: normal saline 1000ml 1,000 ML IV SCH (08:45)
[2018-01-18] MEDS: HYDROmorphone 1 mg/ml syringe IV PRN (10:55)
[2018-01-18 11:38] VITALS: BP 137/65
[2018-01-18 20:00] VITALS: BP 136/53
[2018-01-18] MEDS: atorvastatin 10mg tablet PO SCH (20:33)
[2018-01-18] MEDS: HYDROcodone/acetaminophen 10/325mg tab PO PRN (20:35)
[2018-01-19] VITALS: BP 134/53
[2018-01-19] MEDS: cefepime 1GM/NS ADD-VANTAGE 100 ML IV SCH ×3 (00:21→16:02)
[2018-01-19] MEDS: gabapentin 300mg capsule PO SCH ×3 (00:21→16:02)
[2018-01-19] MEDS: ipratropium/albuterol 3ml nebule NEB SCH ×3 (02:30→15:00)
[2018-01-19 05:29] LABS: BASOPHILS % (AUTO) 0.1 % (0-1); EOSINOPHILS # (AUTO) 0.4 X10'3 (0-0.9); EOSINOPHILS % (AUTO) 2.7 % (0-6); HEMATOCRIT 35.3 % (35.0-45.0); LYMPHOCYTES # (AUTO) 1.6 X10'3 (1.1-4.8); LYMPHOCYTES % (AUTO) 9.4 % (21-51); MEAN CORPUSCULAR HEMOGLOBIN 31.2 PG (27.0-31.0); MEAN CORPUSCULAR HGB CONC 33.9 % (33.0-36.5); MEAN CORPUSCULAR VOLUME 91.8 FL (78-98); MEAN PLATELET VOLUME 7.9 FL (7.4-10.4); MONOCYTES # (AUTO) 1.7 X10'3 (0-0.9); MONOCYTES % (AUTO) 10.2 % (2-12); NEUTROPHILS % (AUTO) 77.6 % (42-75); PLATELET COUNT 320 X10'3 (140-440); RED BLOOD COUNT 3.85 X10'6 (4.20-5.60); RED CELL DISTRIBUTION WIDTH 13.4 % (11.5-14.5); WHITE BLOOD COUNT 16.7 X10'3 (4.5-11.0)
[2018-01-19 06:33] LABS: ALANINE AMINOTRANSFERASE 25 U/L (12-78); ALBUMIN 1.7 G/DL (3.4-5.0); ALBUMIN/GLOBULIN RATIO 0.4 (1.1-1.5); ALKALINE PHOSPHATASE 87 IU/L (46-116); ANION GAP 6 (8-16); ASPARTATE AMINO TRANSFERASE 28 U/L (10-37); BILIRUBIN,TOTAL 0.4 MG/DL (0.1-1.0); BLOOD UREA NITROGEN 8 MG/DL (7-18); BUN/CREATININE RATIO 9.3 (6.6-38.0); CALCIUM 8.4 MG/DL (8.5-10.1); CHLORIDE 101 MMOL/L (99-107); CREATININE 0.86 MG/DL (0.40-0.90); GLUCOSE 99 MG/DL (70-104); POTASSIUM 3.7 MMOL/L (3.5-5.1); SODIUM 135 MMOL/L (135-145); TOTAL CARBON DIOXIDE 28.5 MMOL/L (24-32); TOTAL PROTEIN 6.2 G/DL (6.4-8.2); eGFR 63 ML/MIN
[2018-01-19 07:38] VITALS: BP 154/69
[2018-01-19] MEDS: K and/or MAG REPLACEMENT MC SCH (08:00)
[2018-01-19] MEDS: multivitamin oral liquid (Certavite) 5ml cup PO SCH (08:44)
[2018-01-19] MEDS: venlafaxine 37.5mg tablet PO SCH (08:44)
[2018-01-19] MEDS: HYDROchlorothiazide 12.5mg capsule PO SCH (08:45)
[2018-01-19] MEDS: pantoprazole 40 MG vial IV SCH (08:46)
[2018-01-19] MEDS: levoTHYROXINE 75mcg tablet PO SCH (08:46)
[2018-01-19] MEDS: FLUoxetine 10mg capsule PO SCH (08:46)
[2018-01-19] MEDS: lactobacillus rhamnosus 10,000 MMU CELLS/CAPSULE PO SCH ×2 (08:46→20:07)
[2018-01-19] MEDS: enoxaparin 40mg/0.4ml syringe SUBCUT SCH (08:47)
[2018-01-19] MEDS: dorzolamide/timolol (Cosopt) ophthalmic drops 10ml bottle RIGHTEYE SCH ×2 (08:48→20:08)
[2018-01-19] MEDS: methylnaltrexone br 12mg/0.6ml inj***SubQ only SQ SCH (09:04)
[2018-01-19] MEDS: HYDROmorphone 1 mg/ml syringe IV PRN (09:10)
[2018-01-19] MEDS: HYDROcodone/acetaminophen 10/325mg tab PO PRN (16:24)
[2018-01-19] MEDS ORDERED: ipratropium/albuterol 3ml nebule NEB PRN (16:45)
[2018-01-19 18:00] VITALS: BP 137/65
[2018-01-19] MEDS: atorvastatin 10mg tablet PO SCH (20:08)
[2018-01-19] MEDS: normal saline 1000ml 1,000 ML IV SCH (20:12)
[2018-01-20] VITALS: BP 144/57
[2018-01-20] MEDS: cefepime 1GM/NS ADD-VANTAGE 100 ML IV SCH ×3 (00:07→16:44)
[2018-01-20] MEDS: gabapentin 300mg capsule PO SCH ×3 (00:08→16:00)
[2018-01-20 06:20] LABS: ALANINE AMINOTRANSFERASE 22 U/L (12-78); ALBUMIN 1.7 G/DL (3.4-5.0); ALBUMIN/GLOBULIN RATIO 0.3 (1.1-1.5); ALKALINE PHOSPHATASE 98 IU/L (46-116); ANION GAP 7 (8-16); ASPARTATE AMINO TRANSFERASE 22 U/L (10-37); BILIRUBIN,TOTAL 0.4 MG/DL (0.1-1.0); BLOOD UREA NITROGEN 9 MG/DL (7-18); BUN/CREATININE RATIO 10.7 (6.6-38.0); CALCIUM 8.1 MG/DL (8.5-10.1); CHLORIDE 99 MMOL/L (99-107); CREATININE 0.84 MG/DL (0.40-0.90); GLUCOSE 106 MG/DL (70-104); MAGNESIUM 1.4 MG/DL (1.5-2.4); PHOSPHORUS 2.7 MG/DL (2.3-4.5); POTASSIUM 3.7 MMOL/L (3.5-5.1); PREALBUMIN 9.9 MG/DL (19-36); SODIUM 136 MMOL/L (135-145); TOTAL CARBON DIOXIDE 30.4 MMOL/L (24-32); TOTAL PROTEIN 6.6 G/DL (6.4-8.2); TRIGLYCERIDES 120 MG/DL (20-135); eGFR 65 ML/MIN
[2018-01-20 07:00] VITALS: BP 163/67
[2018-01-20] MEDS: multivitamin oral liquid (Certavite) 5ml cup PO SCH (07:33)
[2018-01-20] MEDS: FLUoxetine 10mg capsule PO SCH (07:34)
[2018-01-20] MEDS: HYDROchlorothiazide 12.5mg capsule PO SCH (07:34)
[2018-01-20] MEDS: pantoprazole 40 MG vial IV SCH (07:34)
[2018-01-20] MEDS: levoTHYROXINE 75mcg tablet PO SCH (07:34)
[2018-01-20] MEDS: lactobacillus rhamnosus 10,000 MMU CELLS/CAPSULE PO SCH ×2 (07:34→20:51)
[2018-01-20] MEDS: dorzolamide/timolol (Cosopt) ophthalmic drops 10ml bottle RIGHTEYE SCH ×2 (07:35→20:51)
[2018-01-20] MEDS: venlafaxine 37.5mg tablet PO SCH (07:35)
[2018-01-20] MEDS: enoxaparin 40mg/0.4ml syringe SUBCUT SCH (07:36)
[2018-01-20] MEDS: K and/or MAG REPLACEMENT MC SCH (08:00)
[2018-01-20 08:56] LABS: BASOPHILS # (AUTO) 0.1 X10'3 (0-0.2); BASOPHILS % (AUTO) 0.5 % (0-1); EOSINOPHILS # (AUTO) 0.2 X10'3 (0-0.9); EOSINOPHILS % (AUTO) 1.4 % (0-6); HEMATOCRIT 36.2 % (35.0-45.0); HEMOGLOBIN 12.2 g/dl (12.0-16.0); LYMPHOCYTES # (AUTO) 1.2 X10'3 (1.1-4.8); MEAN CORPUSCULAR HEMOGLOBIN 30.9 PG (27.0-31.0); MEAN CORPUSCULAR HGB CONC 33.5 % (33.0-36.5); MEAN CORPUSCULAR VOLUME 92.1 FL (78-98); MEAN PLATELET VOLUME 8.3 FL (7.4-10.4); MONOCYTES # (AUTO) 1.1 X10'3 (0-0.9); MONOCYTES % (AUTO) 7.6 % (2-12); NEUTROPHILS # (AUTO) 12.1 X10'3 (1.8-7.7); NEUTROPHILS % (AUTO) 82.5 % (42-75); PLATELET COUNT 355 X10'3 (140-440); RED BLOOD COUNT 3.93 X10'6 (4.20-5.60); RED CELL DISTRIBUTION WIDTH 13.9 % (11.5-14.5); WHITE BLOOD COUNT 14.7 X10'3 (4.5-11.0)
[2018-01-20 11:00] VITALS: BP 125/89
[2018-01-20] MEDS ORDERED: diatr meglu/diatrizoate 30ml oral sol.-(3 dose) bottle PO SCH (12:00)
[2018-01-20 13:08] LABS: CLARITY,URINE CLEAR (Clear); COLOR,URINE STRAW (Yellow); GLUCOSE, URINE NEGATIVE (Neg); KETONES,URINE NEGATIVE (Neg); LEUKOCYTE ESTERASE ,URINE NEGATIVE (Neg); NITRITES, URINE NEGATIVE (Neg); OCCULT BLOOD,URINE NEGATIVE (Neg); PH,URINE 5.5 (4.8-8.0); PROTEIN,URINE NEGATIVE (Neg); UA COLLECTION TYPE CLN CATCH MIDSTREAM; UROBILINOGEN,URINE 0.2 E.U/dL (0.2-1.0)
[2018-01-20] MEDS: diatr meglu/diatrizoate 30ml oral sol.-(3 dose) bottle PO PRN ×3 (13:26→19:23)
[2018-01-20] MEDS ORDERED: iohexol 300mg/ml 100ml inj. ONE (14:26)
[2018-01-20 18:00] VITALS: BP 155/71
[2018-01-20] MEDS: atorvastatin 10mg tablet PO SCH (20:51)
[2018-01-20] MEDS: HYDROcodone/acetaminophen 10/325mg tab PO PRN (22:57)
[2018-01-21 00:10] VITALS: BP 133/85
[2018-01-21] MEDS: gabapentin 300mg capsule PO SCH ×4 (00:22→23:53)
[2018-01-21] MEDS: cefepime 1GM/NS ADD-VANTAGE 100 ML IV SCH ×4 (00:22→23:52)
[2018-01-21 07:00] VITALS: BP 152/92
[2018-01-21] MEDS: K and/or MAG REPLACEMENT MC SCH (08:00)
[2018-01-21] MEDS: enoxaparin 40mg/0.4ml syringe SUBCUT SCH (08:00)
[2018-01-21] MEDS: methylnaltrexone br 12mg/0.6ml inj***SubQ only SQ SCH (08:00)
[2018-01-21] MEDS: pantoprazole 40 MG vial IV SCH (08:38)
[2018-01-21] MEDS: dorzolamide/timolol (Cosopt) ophthalmic drops 10ml bottle RIGHTEYE SCH ×2 (08:38→20:40)
[2018-01-21] MEDS: multivitamin oral liquid (Certavite) 5ml cup PO SCH (08:38)
[2018-01-21] MEDS: HYDROchlorothiazide 12.5mg capsule PO SCH (08:39)
[2018-01-21] MEDS: lactobacillus rhamnosus 10,000 MMU CELLS/CAPSULE PO SCH ×2 (08:39→20:35)
[2018-01-21] MEDS: FLUoxetine 10mg capsule PO SCH (08:39)
[2018-01-21] MEDS: levoTHYROXINE 75mcg tablet PO SCH (08:39)
[2018-01-21] MEDS: venlafaxine 37.5mg tablet PO SCH (08:39)
[2018-01-21 11:00] VITALS: BP 158/67
[2018-01-21] MEDS: normal saline 1000ml 1,000 ML IV SCH (14:30)
[2018-01-21 18:00] VITALS: BP 124/70
[2018-01-21] MEDS ORDERED: HYDROmorphone 1 mg/ml syringe IM ONE (18:35)
[2018-01-21] MEDS: atorvastatin 10mg tablet PO SCH (20:35)
[2018-01-21] MEDS: vancomycin/NS 1 GM ADD-VANTAGE 250 ML X 1 DOSE IV SCH (20:36)
[2018-01-21] MEDS: HYDROcodone/acetaminophen 5mg/325mg tablet PO PRN (21:19)
[2018-01-21] MEDS: metroNIDAZOLE 500mg tablet PO SCH (23:53)
[2018-01-22] VITALS: BP 109/64
[2018-01-22 04:25] VITALS: BP 141/66
[2018-01-22 05:08] VITALS: BP 142/55
[2018-01-22 06:22] LABS: BASOPHILS % (AUTO) 0.1 % (0-1); EOSINOPHILS # (AUTO) 0.3 X10'3 (0-0.9); EOSINOPHILS % (AUTO) 2.1 % (0-6); HEMATOCRIT 34.6 % (35.0-45.0); HEMOGLOBIN 11.8 g/dl (12.0-16.0); LYMPHOCYTES # (AUTO) 1.1 X10'3 (1.1-4.8); LYMPHOCYTES % (AUTO) 8.2 % (21-51); MEAN CORPUSCULAR HEMOGLOBIN 31.2 PG (27.0-31.0); MEAN CORPUSCULAR VOLUME 91.7 FL (78-98); MEAN PLATELET VOLUME 7.2 FL (7.4-10.4); MONOCYTES # (AUTO) 1.1 X10'3 (0-0.9); MONOCYTES % (AUTO) 8.3 % (2-12); NEUTROPHILS # (AUTO) 10.6 X10'3 (1.8-7.7); NEUTROPHILS % (AUTO) 81.3 % (42-75); PLATELET COUNT 452 X10'3 (140-440); RED BLOOD COUNT 3.77 X10'6 (4.20-5.60); RED CELL DISTRIBUTION WIDTH 13.3 % (11.5-14.5)
[2018-01-22 07:00] VITALS: BP 139/79
[2018-01-22] MEDS: K and/or MAG REPLACEMENT MC SCH (08:00)
[2018-01-22] MEDS: levoTHYROXINE 75mcg tablet PO SCH (08:30)
[2018-01-22] MEDS: multivitamin oral liquid (Certavite) 5ml cup PO SCH (08:30)
[2018-01-22] MEDS: FLUoxetine 10mg capsule PO SCH (08:30)
[2018-01-22] MEDS: pantoprazole 40 MG vial IV SCH (08:30)
[2018-01-22] MEDS: lactobacillus rhamnosus 10,000 MMU CELLS/CAPSULE PO SCH ×2 (08:31→19:10)
[2018-01-22] MEDS: venlafaxine 37.5mg tablet PO SCH (08:31)
[2018-01-22] MEDS: HYDROchlorothiazide 12.5mg capsule PO SCH (08:31)
[2018-01-22] MEDS: metroNIDAZOLE 500mg tablet PO SCH ×3 (08:31→23:33)
[2018-01-22] MEDS: gabapentin 300mg capsule PO SCH ×3 (08:31→23:32)
[2018-01-22] MEDS: dorzolamide/timolol (Cosopt) ophthalmic drops 10ml bottle RIGHTEYE SCH ×2 (08:34→19:10)
[2018-01-22] MEDS: cefepime 1GM/NS ADD-VANTAGE 100 ML IV SCH ×3 (08:41→23:32)
[2018-01-22] MEDS: enoxaparin 40mg/0.4ml syringe SUBCUT SCH (08:49)
[2018-01-22 11:00] VITALS: BP 136/59
[2018-01-22] MEDS: HYDROcodone/acetaminophen 10/325mg tab PO PRN (16:19)
[2018-01-22 19:00] VITALS: BP 132/60
[2018-01-22] MEDS: vancomycin/NS 1 GM ADD-VANTAGE 250 ML X 1 DOSE IV SCH (19:10)
[2018-01-22] MEDS: atorvastatin 10mg tablet PO SCH (20:15)
[2018-01-23] VITALS: BP 123/66
[2018-01-23 07:00] VITALS: BP 139/68
[2018-01-23] MEDS: K and/or MAG REPLACEMENT MC SCH (08:00)
[2018-01-23] MEDS: methylnaltrexone br 12mg/0.6ml inj***SubQ only SQ SCH (08:00)
[2018-01-23] MEDS: pantoprazole 40 MG vial IV SCH (08:22)
[2018-01-23] MEDS: metroNIDAZOLE 500mg tablet PO SCH ×3 (08:22→23:23)
[2018-01-23] MEDS: FLUoxetine 10mg capsule PO SCH (08:22)
[2018-01-23] MEDS: levoTHYROXINE 75mcg tablet PO SCH (08:22)
[2018-01-23] MEDS: multivitamin oral liquid (Certavite) 5ml cup PO SCH (08:22)
[2018-01-23] MEDS: lactobacillus rhamnosus 10,000 MMU CELLS/CAPSULE PO SCH ×2 (08:23→19:33)
[2018-01-23] MEDS: venlafaxine 37.5mg tablet PO SCH (08:23)
[2018-01-23] MEDS: HYDROchlorothiazide 12.5mg capsule PO SCH (08:23)
[2018-01-23] MEDS: gabapentin 300mg capsule PO SCH ×3 (08:23→23:23)
[2018-01-23] MEDS: cefepime 1GM/NS ADD-VANTAGE 100 ML IV SCH ×3 (08:24→23:23)
[2018-01-23] MEDS: dorzolamide/timolol (Cosopt) ophthalmic drops 10ml bottle RIGHTEYE SCH ×2 (08:39→19:33)
[2018-01-23] MEDS: enoxaparin 40mg/0.4ml syringe SUBCUT SCH (08:40)
[2018-01-23 12:34] VITALS: BP 133/68
[2018-01-23] MEDS ORDERED: LACTOSE-FREE FOOD 237ML (BOOST) PO SCH (18:00)
[2018-01-23 19:00] VITALS: BP 133/60
[2018-01-23] MEDS: vancomycin/NS 1 GM ADD-VANTAGE 250 ML X 1 DOSE IV SCH (19:33)
[2018-01-23] MEDS: atorvastatin 10mg tablet PO SCH (20:49)
[2018-01-23] MEDS: LORazepam 0.5 MG tablet PO PRN (23:23)
[2018-01-24] VITALS: BP 138/72
[2018-01-24] MEDS: normal saline 1000ml 1,000 ML IV SCH (04:41)
[2018-01-24 05:13] LABS: ALANINE AMINOTRANSFERASE 21 U/L (12-78); ALBUMIN 1.9 G/DL (3.4-5.0); ALBUMIN/GLOBULIN RATIO 0.4 (1.1-1.5); ALKALINE PHOSPHATASE 69 IU/L (46-116); ANION GAP 8 (8-16); ASPARTATE AMINO TRANSFERASE 23 U/L (10-37); BILIRUBIN,TOTAL 0.3 MG/DL (0.1-1.0); BLOOD UREA NITROGEN 7 MG/DL (7-18); BUN/CREATININE RATIO 8.1 (6.6-38.0); CALCIUM 8.3 MG/DL (8.5-10.1); CHLORIDE 103 MMOL/L (99-107); CREATININE 0.86 MG/DL (0.40-0.90); GLUCOSE 131 MG/DL (70-104); PHOSPHORUS 2.7 MG/DL (2.3-4.5); POTASSIUM 3.6 MMOL/L (3.5-5.1); PREALBUMIN 13.1 MG/DL (19-36); SODIUM 138 MMOL/L (135-145); TOTAL CARBON DIOXIDE 27.5 MMOL/L (24-32); TOTAL PROTEIN 6.7 G/DL (6.4-8.2); eGFR 63 ML/MIN
[2018-01-24 07:00] VITALS: BP 123/75
[2018-01-24] MEDS: cefepime 1GM/NS ADD-VANTAGE 100 ML IV SCH ×3 (07:41→23:02)
[2018-01-24] MEDS: multivitamin oral liquid (Certavite) 5ml cup PO SCH (07:41)
[2018-01-24] MEDS: dorzolamide/timolol (Cosopt) ophthalmic drops 10ml bottle RIGHTEYE SCH ×2 (07:41→19:00)
[2018-01-24] MEDS: pantoprazole 40 MG vial IV SCH (07:41)
[2018-01-24] MEDS: enoxaparin 40mg/0.4ml syringe SUBCUT SCH (07:43)
[2018-01-24] MEDS: gabapentin 300mg capsule PO SCH ×3 (07:43→23:02)
[2018-01-24] MEDS: lactobacillus rhamnosus 10,000 MMU CELLS/CAPSULE PO SCH ×2 (07:43→19:00)
[2018-01-24] MEDS: venlafaxine 37.5mg tablet PO SCH (07:43)
[2018-01-24] MEDS: levoTHYROXINE 75mcg tablet PO SCH (07:43)
[2018-01-24] MEDS: FLUoxetine 10mg capsule PO SCH (07:43)
[2018-01-24] MEDS: HYDROchlorothiazide 12.5mg capsule PO SCH (07:43)
[2018-01-24] MEDS: metroNIDAZOLE 500mg tablet PO SCH ×3 (07:43→23:02)
[2018-01-24] MEDS: K and/or MAG REPLACEMENT MC SCH (08:00)
[2018-01-24 12:00] VITALS: BP 143/61
[2018-01-24 19:00] VITALS: BP 140/76
[2018-01-24] MEDS ORDERED: VANCOMYCIN LEVEL IV ONE (19:30)
[2018-01-24] MEDS: LORazepam 0.5 MG tablet PO PRN (19:56)
[2018-01-24] MEDS: atorvastatin 10mg tablet PO SCH (19:56)
[2018-01-25] VITALS: BP 137/50
[2018-01-25 07:00] VITALS: BP 149/73
[2018-01-25] MEDS: K and/or MAG REPLACEMENT MC SCH (08:00)
[2018-01-25] MEDS: methylnaltrexone br 12mg/0.6ml inj***SubQ only SQ SCH (08:00)
[2018-01-25] MEDS: cefepime 1GM/NS ADD-VANTAGE 100 ML IV SCH (09:43)
[2018-01-25] MEDS: dorzolamide/timolol (Cosopt) ophthalmic drops 10ml bottle RIGHTEYE SCH ×2 (09:45→20:25)
[2018-01-25] MEDS: multivitamin oral liquid (Certavite) 5ml cup PO SCH (09:46)
[2018-01-25] MEDS: enoxaparin 40mg/0.4ml syringe SUBCUT SCH (09:48)
[2018-01-25] MEDS: lactobacillus rhamnosus 10,000 MMU CELLS/CAPSULE PO SCH ×2 (09:51→20:25)
[2018-01-25] MEDS: FLUoxetine 10mg capsule PO SCH (09:51)
[2018-01-25] MEDS: HYDROchlorothiazide 12.5mg capsule PO SCH (09:51)
[2018-01-25] MEDS: levoTHYROXINE 75mcg tablet PO SCH (09:52)
[2018-01-25] MEDS: venlafaxine 37.5mg tablet PO SCH (09:52)
[2018-01-25] MEDS: metroNIDAZOLE 500mg tablet PO SCH (09:52)
[2018-01-25] MEDS: gabapentin 300mg capsule PO SCH ×2 (09:52→17:00)
[2018-01-25] MEDS: pantoprazole 40 MG vial IV SCH (09:54)
[2018-01-25 12:01] LABS: BASOPHILS % (AUTO) 0.3 % (0-1); EOSINOPHILS # (AUTO) 0.2 X10'3 (0-0.9); EOSINOPHILS % (AUTO) 1.6 % (0-6); HEMATOCRIT 33.6 % (35.0-45.0); HEMOGLOBIN 11.4 g/dl (12.0-16.0); LYMPHOCYTES # (AUTO) 1.5 X10'3 (1.1-4.8); LYMPHOCYTES % (AUTO) 13.6 % (21-51); MEAN CORPUSCULAR HEMOGLOBIN 31.1 PG (27.0-31.0); MEAN CORPUSCULAR HGB CONC 33.8 % (33.0-36.5); MEAN CORPUSCULAR VOLUME 91.8 FL (78-98); MEAN PLATELET VOLUME 7.1 FL (7.4-10.4); MONOCYTES # (AUTO) 1.1 X10'3 (0-0.9); NEUTROPHILS % (AUTO) 74.5 % (42-75); PLATELET COUNT 476 X10'3 (140-440); RED BLOOD COUNT 3.66 X10'6 (4.20-5.60); RED CELL DISTRIBUTION WIDTH 13.7 % (11.5-14.5); WHITE BLOOD COUNT 10.8 X10'3 (4.5-11.0)
[2018-01-25 12:11] VITALS: BP 131/66
[2018-01-25 12:15] LABS: ANION GAP 5 (8-16); BLOOD UREA NITROGEN 9 MG/DL (7-18); BUN/CREATININE RATIO 8.7 (6.6-38.0); CHLORIDE 100 MMOL/L (99-107); CREATININE 1.04 MG/DL (0.40-0.90); GLUCOSE 138 MG/DL (70-104); POTASSIUM 3.8 MMOL/L (3.5-5.1); SODIUM 133 MMOL/L (135-145); TOTAL CARBON DIOXIDE 28.3 MMOL/L (24-32)
[2018-01-25 12:16] LABS: ALANINE AMINOTRANSFERASE 28 U/L (12-78); ALBUMIN/GLOBULIN RATIO 0.4 (1.1-1.5); ALKALINE PHOSPHATASE 68 IU/L (46-116); ASPARTATE AMINO TRANSFERASE 40 U/L (10-37); BILIRUBIN,TOTAL 0.2 MG/DL (0.1-1.0); CALCIUM 8.6 MG/DL (8.5-10.1); TOTAL PROTEIN 6.8 G/DL (6.4-8.2); eGFR 50 ML/MIN
[2018-01-25] MEDS: amox tr/potassium clavulanate 875/125mg TAB PO SCH (17:00)
[2018-01-25 19:00] VITALS: BP_SYST 126; BP_SYST 136; BP_DIAS 73; BP_DIAS 77
[2018-01-25] MEDS: ciprofloxacin 250mg tablet PO SCH (20:25)
[2018-01-25] MEDS: atorvastatin 10mg tablet PO SCH (20:25)
[2018-01-25] MEDS: HYDROcodone/acetaminophen 5mg/325mg tablet PO PRN (20:26)
[2018-01-26] VITALS: BP 143/70
[2018-01-26] MEDS: gabapentin 300mg capsule PO SCH ×2 (00:19→08:25)
[2018-01-26 07:10] VITALS: BP 141/71
[2018-01-26] MEDS: K and/or MAG REPLACEMENT MC SCH (08:00)
[2018-01-26] MEDS: pantoprazole 40 MG vial IV SCH (08:00)
[2018-01-26] MEDS: dorzolamide/timolol (Cosopt) ophthalmic drops 10ml bottle RIGHTEYE SCH (08:25)
[2018-01-26] MEDS: lactobacillus rhamnosus 10,000 MMU CELLS/CAPSULE PO SCH (08:25)
[2018-01-26] MEDS: HYDROchlorothiazide 12.5mg capsule PO SCH (08:25)
[2018-01-26] MEDS: amox tr/potassium clavulanate 875/125mg TAB PO SCH (08:25)
[2018-01-26] MEDS: FLUoxetine 10mg capsule PO SCH (08:25)
[2018-01-26] MEDS: levoTHYROXINE 75mcg tablet PO SCH (08:25)
[2018-01-26] MEDS: ciprofloxacin 250mg tablet PO SCH (08:25)
[2018-01-26] MEDS: enoxaparin 40mg/0.4ml syringe SUBCUT SCH (08:26)
[2018-01-26] MEDS: multivitamin oral liquid (Certavite) 5ml cup PO SCH (08:26)
[2018-01-26] MEDS: venlafaxine 37.5mg tablet PO SCH (08:26)
[2018-01-26] MEDS: normal saline 1000ml 1,000 ML IV SCH (08:45)
[2018-01-26 09:31] LABS: BASOPHILS # (AUTO) 0.1 X10'3 (0-0.2); BASOPHILS % (AUTO) 0.6 % (0-1); EOSINOPHILS # (AUTO) 0.2 X10'3 (0-0.9); EOSINOPHILS % (AUTO) 2.4 % (0-6); HEMATOCRIT 34.4 % (35.0-45.0); HEMOGLOBIN 11.6 g/dl (12.0-16.0); LYMPHOCYTES # (AUTO) 1.5 X10'3 (1.1-4.8); LYMPHOCYTES % (AUTO) 16.1 % (21-51); MEAN CORPUSCULAR HEMOGLOBIN 31.2 PG (27.0-31.0); MEAN CORPUSCULAR HGB CONC 33.7 % (33.0-36.5); MEAN CORPUSCULAR VOLUME 92.7 FL (78-98); MEAN PLATELET VOLUME 7.1 FL (7.4-10.4); MONOCYTES # (AUTO) 1.1 X10'3 (0-0.9); MONOCYTES % (AUTO) 12.5 % (2-12); NEUTROPHILS # (AUTO) 6.2 X10'3 (1.8-7.7); NEUTROPHILS % (AUTO) 68.4 % (42-75); PLATELET COUNT 487 X10'3 (140-440); RED BLOOD COUNT 3.71 X10'6 (4.20-5.60); RED CELL DISTRIBUTION WIDTH 13.5 % (11.5-14.5); WHITE BLOOD COUNT 9.1 X10'3 (4.5-11.0)
[2018-01-26 09:46] LABS: ALANINE AMINOTRANSFERASE 41 U/L (12-78); ALBUMIN/GLOBULIN RATIO 0.4 (1.1-1.5); ALKALINE PHOSPHATASE 225 IU/L (46-116); ANION GAP 6 (8-16); ASPARTATE AMINO TRANSFERASE 61 U/L (10-37); BILIRUBIN,TOTAL 0.2 MG/DL (0.1-1.0); BLOOD UREA NITROGEN 8 MG/DL (7-18); BUN/CREATININE RATIO 7.9 (6.6-38.0); CALCIUM 8.6 MG/DL (8.5-10.1); CHLORIDE 100 MMOL/L (99-107); CREATININE 1.01 MG/DL (0.40-0.90); GLUCOSE 150 MG/DL (70-104); POTASSIUM 3.8 MMOL/L (3.5-5.1); SODIUM 136 MMOL/L (135-145); TOTAL CARBON DIOXIDE 30.3 MMOL/L (24-32); eGFR 52 ML/MIN
[2018-01-26 11:31] VITALS: BP 127/73
[2018-01-26] MEDS: HYDROcodone/acetaminophen 10/325mg tab PO PRN (12:32)
== END 2018-01-25 15:32 | DRG 335 ==
LOC: ER 14:09 → ED HOLD 16:37 → EDBEDREQ 18:03 → PCU 3S 18:45 → PACU 01-12 14:06 → SUR 3N 01-12 15:45
PROVIDERS: ADMIT Family Medicine; ATTEND Internal Medicine
PROC: 0D9670Z Drainage of Stomach with Drainage Device, Via Natural or Artificial Opening (ICD-10-PCS; 2018-01-11)
PROC: BW211ZZ Computerized Tomography (CT Scan) of Abdomen and Pelvis using Low Osmolar Contrast (ICD-10-PCS; 2018-01-11)
PROC: 0DN80ZZ Release Small Intestine, Open Approach (ICD-10-PCS; 2018-01-12)
PROC: 0DNU0ZZ Release Omentum, Open Approach (ICD-10-PCS; 2018-01-12)
PROC: 0TQB0ZZ Repair Bladder, Open Approach (ICD-10-PCS; 2018-01-12)
PROC: 0DNU4ZZ Release Omentum, Percutaneous Endoscopic Approach (ICD-10-PCS; 2018-01-12)
PROC: 0DNW0ZZ Release Peritoneum, Open Approach (ICD-10-PCS; principal; 2018-01-12 14:40)
PROC: BT101ZZ Fluoroscopy of Bladder using Low Osmolar Contrast (ICD-10-PCS; 2018-01-17)
PROC: BW211ZZ Computerized Tomography (CT Scan) of Abdomen and Pelvis using Low Osmolar Contrast (ICD-10-PCS; 2018-01-17)
PROC: 0W9F3ZX Drainage of Abdominal Wall, Percutaneous Approach, Diagnostic (ICD-10-PCS; 2018-01-21)
DX: K56.50 Intestinal adhesions [bands], unspecified as to partial versus complete obstruction (principal); J96.00 Acute respiratory failure, unspecified whether with hypoxia or hypercapnia; E44.0 Moderate protein-calorie malnutrition; T81.4XXA Infection following a procedure, initial encounter; L02.211 Cutaneous abscess of abdominal wall; E11.9 Type 2 diabetes mellitus without complications; I10 Essential (primary) hypertension; E78.5 Hyperlipidemia, unspecified; N73.6 Female pelvic peritoneal adhesions (postinfective); N32.89 Other specified disorders of bladder; R39.15 Urgency of urination; I80.8 Phlebitis and thrombophlebitis of other sites; K56.7 Ileus, unspecified; E87.6 Hypokalemia; M54.9 Dorsalgia, unspecified; E03.9 Hypothyroidism, unspecified; E78.00 Pure hypercholesterolemia, unspecified; F03.90 Unspecified dementia, unspecified severity, without behavioral disturbance, psychotic disturbance, mood disturbance, and anxiety; K21.9 Gastro-esophageal reflux disease without esophagitis; F41.9 Anxiety disorder, unspecified; G89.29 Other chronic pain; Z53.31 Laparoscopic surgical procedure converted to open procedure; Z90.710 Acquired absence of both cervix and uterus; Z79.82 Long term (current) use of aspirin; Z79.899 Other long term (current) drug therapy; Z86.718 Personal history of other venous thrombosis and embolism; Z68.21 Body mass index [BMI] 21.0-21.9, adult; Y83.8 Other surgical procedures as the cause of abnormal reaction of the patient, or of later complication, without mention of misadventure at the time of the procedure; Y92.238 Other place in hospital as the place of occurrence of the external cause; B95.2 Enterococcus as the cause of diseases classified elsewhere
CPT/HCPCS: 36415; 71045; 74176; 74177; 80048; 80053; 81001; 81003; 82948; 83605; 83735; 84100; 84132; 84134; 84145; 84443; 84478; 85025; 85610; 85730; 87040; 87070; 87075; 87076; 87077; 87185; 87186; 93005; 94640; 94760; 97110; 97116; 97161; 97530; 99285; A4649; A6253; A6255; A6446; A6449; A7000; C1758; C9113; J0360; J0692; J1100; J1170; J1650; J2001; J2270; J2405; J2704; J2710; J2795; J3010; J3370; J3480; J3490; J7030; J7120; Q9958; Q9963; Q9967

== ENCOUNTER 2018-02-16 08:47 | Day surgery (SDC) | payer MEDICARE, OTHER ==
[~2018-02-16 08:47] MED LIST changes: +ASPI-611 PO; -ATE25T PO; -COU1T PO; +DORZ10DR18 RIGHTEYE; +ESOM40CA30 PO; +EST1T PO; +FLUO10CA30 PO; +GABA-532 PO; +METO-539 PO; +NEBI5TAB10 PO; -NOR5T PO; -ONDA4TAB9 PO; -VALS1TAB PO; +VALS1TAB75 PO; -VENL-191 PO
[2018-02-16] MEDS ORDERED: LIDOcaine 2% 5ml jelly ONE (09:48)
== END 2018-02-16 10:29 | disposition home or self-care (01) ==
LOC: WOUND CARE 08:47
PROVIDERS: ATTEND Surgery
DX: T81.89XD Other complications of procedures, not elsewhere classified, subsequent encounter (principal); I10 Essential (primary) hypertension; K21.9 Gastro-esophageal reflux disease without esophagitis; E78.5 Hyperlipidemia, unspecified; E03.9 Hypothyroidism, unspecified; E44.0 Moderate protein-calorie malnutrition; G89.29 Other chronic pain; E78.00 Pure hypercholesterolemia, unspecified; F41.9 Anxiety disorder, unspecified; F03.90 Unspecified dementia, unspecified severity, without behavioral disturbance, psychotic disturbance, mood disturbance, and anxiety; Z90.710 Acquired absence of both cervix and uterus; Z68.21 Body mass index [BMI] 21.0-21.9, adult; Z79.82 Long term (current) use of aspirin; Z79.899 Other long term (current) drug therapy; Z86.718 Personal history of other venous thrombosis and embolism; Z79.01 Long term (current) use of anticoagulants; Y83.8 Other surgical procedures as the cause of abnormal reaction of the patient, or of later complication, without mention of misadventure at the time of the procedure
CPT/HCPCS: 97597; 97598; A6021; A6206; A6209; A6250

== ENCOUNTER 2018-02-23 08:26 | Day surgery (SDC) | payer MEDICARE, OTHER ==
[2018-02-23] MEDS ORDERED: LIDOcaine 2% 5ml jelly ONE (09:41)
== END 2018-02-23 11:00 | disposition home or self-care (01) ==
LOC: WOUND CARE 08:26
PROVIDERS: ATTEND Surgery
DX: T81.89XD Other complications of procedures, not elsewhere classified, subsequent encounter (principal); L98.492 Non-pressure chronic ulcer of skin of other sites with fat layer exposed; I10 Essential (primary) hypertension; K21.9 Gastro-esophageal reflux disease without esophagitis; E78.5 Hyperlipidemia, unspecified; E03.9 Hypothyroidism, unspecified; E44.0 Moderate protein-calorie malnutrition; G89.29 Other chronic pain; E78.00 Pure hypercholesterolemia, unspecified; F41.9 Anxiety disorder, unspecified; F03.90 Unspecified dementia, unspecified severity, without behavioral disturbance, psychotic disturbance, mood disturbance, and anxiety; Z90.710 Acquired absence of both cervix and uterus; Z68.21 Body mass index [BMI] 21.0-21.9, adult; Z79.82 Long term (current) use of aspirin; Z79.899 Other long term (current) drug therapy; Z86.718 Personal history of other venous thrombosis and embolism; Z79.01 Long term (current) use of anticoagulants; Y83.8 Other surgical procedures as the cause of abnormal reaction of the patient, or of later complication, without mention of misadventure at the time of the procedure
CPT/HCPCS: 17250; 36415; 83036; A6021; A6206; A6209

== ENCOUNTER 2018-03-02 08:44 | Day surgery (SDC) | payer MEDICARE, OTHER ==
[2018-03-02] MEDS ORDERED: LIDOcaine 2% 5ml jelly ONE (10:00)
== END 2018-03-02 11:08 | disposition home or self-care (01) ==
LOC: WOUND CARE 08:44
PROVIDERS: ATTEND Surgery
DX: T81.89XD Other complications of procedures, not elsewhere classified, subsequent encounter (principal); L98.492 Non-pressure chronic ulcer of skin of other sites with fat layer exposed; I10 Essential (primary) hypertension; K21.9 Gastro-esophageal reflux disease without esophagitis; E78.5 Hyperlipidemia, unspecified; E03.9 Hypothyroidism, unspecified; E44.0 Moderate protein-calorie malnutrition; G89.29 Other chronic pain; E78.00 Pure hypercholesterolemia, unspecified; F41.9 Anxiety disorder, unspecified; F03.90 Unspecified dementia, unspecified severity, without behavioral disturbance, psychotic disturbance, mood disturbance, and anxiety; Z90.710 Acquired absence of both cervix and uterus; Z68.21 Body mass index [BMI] 21.0-21.9, adult; Z79.82 Long term (current) use of aspirin; Z79.899 Other long term (current) drug therapy; Z86.718 Personal history of other venous thrombosis and embolism; Z79.01 Long term (current) use of anticoagulants; Y83.8 Other surgical procedures as the cause of abnormal reaction of the patient, or of later complication, without mention of misadventure at the time of the procedure
CPT/HCPCS: 17250; A6206; A6209; A6250

== ENCOUNTER 2018-03-07 16:47 | Emergency (ER) | payer MEDICARE, OTHER ==
[~2018-03-07] VITALS: Ht 167.6 cm; Wt 61.0 kg
[2018-03-07 18:52] LABS: BASOPHILS % (AUTO) 0.4 % (0-1); EOSINOPHILS # (AUTO) 0.2 X10'3 (0-0.9); EOSINOPHILS % (AUTO) 1.8 % (0-6); HEMATOCRIT 35.8 % (35.0-45.0); LYMPHOCYTES # (AUTO) 2.3 X10'3 (1.1-4.8); MEAN CORPUSCULAR HEMOGLOBIN 30.1 PG (27.0-31.0); MEAN CORPUSCULAR HGB CONC 33.5 % (33.0-36.5); MEAN CORPUSCULAR VOLUME 90.1 FL (78-98); MEAN PLATELET VOLUME 8.1 FL (7.4-10.4); MONOCYTES # (AUTO) 1.1 X10'3 (0-0.9); MONOCYTES % (AUTO) 9.8 % (2-12); NEUTROPHILS # (AUTO) 7.7 X10'3 (1.8-7.7); PLATELET COUNT 244 X10'3 (140-440); RED BLOOD COUNT 3.98 X10'6 (4.20-5.60); WHITE BLOOD COUNT 11.3 X10'3 (4.5-11.0)
[2018-03-07 19:07] LABS: ALANINE AMINOTRANSFERASE 17 U/L (12-78); ALBUMIN 2.6 G/DL (3.4-5.0); ALBUMIN/GLOBULIN RATIO 0.5 (1.1-1.5); ALKALINE PHOSPHATASE 78 IU/L (46-116); ANION GAP 7 (8-16); ASPARTATE AMINO TRANSFERASE 18 U/L (10-37); BILIRUBIN,TOTAL 0.4 MG/DL (0.1-1.0); BLOOD UREA NITROGEN 18 MG/DL (7-18); BUN/CREATININE RATIO 16.7 (6.6-38.0); CALCIUM 9.1 MG/DL (8.5-10.1); CHLORIDE 98 MMOL/L (99-107); CREATININE 1.08 MG/DL (0.40-0.90); GLUCOSE 132 MG/DL (70-104); POTASSIUM 4.2 MMOL/L (3.5-5.1); SODIUM 135 MMOL/L (135-145); TOTAL CARBON DIOXIDE 30.2 MMOL/L (24-32); TOTAL PROTEIN 8.3 G/DL (6.4-8.2); eGFR 48 ML/MIN
[2018-03-07] MEDS ORDERED: APIX5TAB3 PO (19:10)
[2018-03-07] MEDS ORDERED: enoxaparin 60mg/0.6ml syringe SUBCUT ONE (19:15)
[2018-03-07 19:43] VITALS: BP 149/78
== END 2018-03-07 19:44 | disposition home or self-care (01) ==
LOC: ER 16:47
DX: I82.491 Acute embolism and thrombosis of other specified deep vein of right lower extremity (principal); E78.00 Pure hypercholesterolemia, unspecified; G89.29 Other chronic pain; Z90.710 Acquired absence of both cervix and uterus; Z98.890 Other specified postprocedural states; Z79.82 Long term (current) use of aspirin; Z79.899 Other long term (current) drug therapy
CPT/HCPCS: 36415; 80053; 85025; 93971; 96372; 99285; J1650

== ENCOUNTER 2018-03-09 09:08 | Day surgery (SDC) | payer MEDICARE, OTHER ==
[~2018-03-09 09:08] MED LIST changes: +APIX5TAB3 PO
[2018-03-09] MEDS: LIDOcaine 2% 5ml jelly ONE (09:58)
== END 2018-03-09 10:56 | disposition home or self-care (01) ==
LOC: WOUND CARE 09:08
PROVIDERS: ATTEND Surgery
DX: T81.89XD Other complications of procedures, not elsewhere classified, subsequent encounter (principal); L98.492 Non-pressure chronic ulcer of skin of other sites with fat layer exposed; I10 Essential (primary) hypertension; K21.9 Gastro-esophageal reflux disease without esophagitis; E78.5 Hyperlipidemia, unspecified; E03.9 Hypothyroidism, unspecified; E44.0 Moderate protein-calorie malnutrition; G89.29 Other chronic pain; E78.00 Pure hypercholesterolemia, unspecified; F41.9 Anxiety disorder, unspecified; F03.90 Unspecified dementia, unspecified severity, without behavioral disturbance, psychotic disturbance, mood disturbance, and anxiety; Z90.710 Acquired absence of both cervix and uterus; Z68.21 Body mass index [BMI] 21.0-21.9, adult; Z79.82 Long term (current) use of aspirin; Z79.899 Other long term (current) drug therapy; Z86.718 Personal history of other venous thrombosis and embolism; Z79.01 Long term (current) use of anticoagulants; Y83.8 Other surgical procedures as the cause of abnormal reaction of the patient, or of later complication, without mention of misadventure at the time of the procedure
CPT/HCPCS: 17250; A6021; A6206; A6209

== ENCOUNTER 2018-03-16 08:55 | Day surgery (SDC) | payer MEDICARE, OTHER ==
[2018-03-16] MEDS ORDERED: LIDOcaine 2% 5ml jelly ONE (09:40)
== END 2018-03-16 10:38 | disposition home or self-care (01) ==
LOC: WOUND CARE 08:55
PROVIDERS: ATTEND Surgery
DX: T81.89XD Other complications of procedures, not elsewhere classified, subsequent encounter (principal); L98.492 Non-pressure chronic ulcer of skin of other sites with fat layer exposed; I10 Essential (primary) hypertension; K21.9 Gastro-esophageal reflux disease without esophagitis; E78.5 Hyperlipidemia, unspecified; E03.9 Hypothyroidism, unspecified; E44.0 Moderate protein-calorie malnutrition; G89.29 Other chronic pain; E78.00 Pure hypercholesterolemia, unspecified; F41.9 Anxiety disorder, unspecified; F03.90 Unspecified dementia, unspecified severity, without behavioral disturbance, psychotic disturbance, mood disturbance, and anxiety; Z90.710 Acquired absence of both cervix and uterus; Z68.21 Body mass index [BMI] 21.0-21.9, adult; Z79.82 Long term (current) use of aspirin; Z79.899 Other long term (current) drug therapy; Z86.718 Personal history of other venous thrombosis and embolism; Z79.01 Long term (current) use of anticoagulants; Y83.8 Other surgical procedures as the cause of abnormal reaction of the patient, or of later complication, without mention of misadventure at the time of the procedure
CPT/HCPCS: 17250; A6021; A6213

== ENCOUNTER 2018-03-23 09:12 | Day surgery (SDC) | payer MEDICARE, OTHER ==
[2018-03-23] MEDS ORDERED: LIDOcaine 2% 5ml jelly ONE (10:29)
== END 2018-03-23 11:01 | disposition home or self-care (01) ==
LOC: WOUND CARE 09:12
PROVIDERS: ATTEND Surgery
DX: T81.89XD Other complications of procedures, not elsewhere classified, subsequent encounter (principal); L98.492 Non-pressure chronic ulcer of skin of other sites with fat layer exposed; I10 Essential (primary) hypertension; K21.9 Gastro-esophageal reflux disease without esophagitis; E78.5 Hyperlipidemia, unspecified; E03.9 Hypothyroidism, unspecified; E44.0 Moderate protein-calorie malnutrition; G89.29 Other chronic pain; E78.00 Pure hypercholesterolemia, unspecified; F41.9 Anxiety disorder, unspecified; F03.90 Unspecified dementia, unspecified severity, without behavioral disturbance, psychotic disturbance, mood disturbance, and anxiety; Z90.710 Acquired absence of both cervix and uterus; Z68.21 Body mass index [BMI] 21.0-21.9, adult; Z79.82 Long term (current) use of aspirin; Z79.899 Other long term (current) drug therapy; Z86.718 Personal history of other venous thrombosis and embolism; Z79.01 Long term (current) use of anticoagulants; Y83.8 Other surgical procedures as the cause of abnormal reaction of the patient, or of later complication, without mention of misadventure at the time of the procedure
CPT/HCPCS: 15271; A6021; A6209; A6222; Q4131; A6250

== ENCOUNTER 2018-03-24 18:58 | Inpatient (IN) | payer MEDICARE, OTHER ==
[~2018-03-24] VITALS: Ht 167.6 cm; Wt 60.0 kg
[2018-03-24] MEDS ORDERED: acetaminophen 325mg tablet PO ONE (19:05)
[2018-03-24 19:39] LABS: BASOPHILS % (AUTO) 0 % (0-1); EOSINOPHILS # (AUTO) 0.2 X10'3 (0-0.9); EOSINOPHILS % (AUTO) 1.8 % (0-6); HEMATOCRIT 30.1 % (35.0-45.0); HEMOGLOBIN 10.1 g/dl (12.0-16.0); LYMPHOCYTES # (AUTO) 0.6 X10'3 (1.1-4.8); LYMPHOCYTES % (AUTO) 4.9 % (21-51); MEAN CORPUSCULAR HEMOGLOBIN 29.4 PG (27.0-31.0); MEAN CORPUSCULAR HGB CONC 33.7 % (33.0-36.5); MEAN CORPUSCULAR VOLUME 87.4 FL (78-98); MEAN PLATELET VOLUME 7.1 FL (7.4-10.4); MONOCYTES # (AUTO) 0.5 X10'3 (0-0.9); MONOCYTES % (AUTO) 3.8 % (2-12); NEUTROPHILS # (AUTO) 11.7 X10'3 (1.8-7.7); NEUTROPHILS % (AUTO) 89.5 % (42-75); PLATELET COUNT 358 X10'3 (140-440); RED BLOOD COUNT 3.45 X10'6 (4.20-5.60); RED CELL DISTRIBUTION WIDTH 14.5 % (11.5-14.5)
[2018-03-24 19:51] LABS: INR 1.1 INR; PARTIAL THROMBOPLASTIN TIME 30 SECONDS (22-32); PROTHROMBIN TIME 11.4 SECONDS (9.0-12.0)
[2018-03-24] MEDS ORDERED: normal saline 1000ML IV soln IV ONE (20:10)
[2018-03-24 20:19] LABS: ALANINE AMINOTRANSFERASE 12 U/L (12-78); ALBUMIN 2.3 G/DL (3.4-5.0); ALBUMIN/GLOBULIN RATIO 0.4 (1.1-1.5); ALKALINE PHOSPHATASE 66 IU/L (46-116); ANION GAP 7 (8-16); ASPARTATE AMINO TRANSFERASE 21 U/L (10-37); BILIRUBIN,TOTAL 0.2 MG/DL (0.1-1.0); BLOOD UREA NITROGEN 29 MG/DL (7-18); BUN/CREATININE RATIO 24.6 (6.6-38.0); CALCIUM 8.5 MG/DL (8.5-10.1); CHLORIDE 99 MMOL/L (99-107); CREATININE 1.18 MG/DL (0.40-0.90); GLUCOSE 160 MG/DL (70-104); POTASSIUM 4.2 MMOL/L (3.5-5.1); SODIUM 131 MMOL/L (135-145); TOTAL CARBON DIOXIDE 24.7 MMOL/L (24-32); TOTAL PROTEIN 7.5 G/DL (6.4-8.2); eGFR 44 ML/MIN
[2018-03-24 20:49] LABS: CLARITY,URINE CLEAR (Clear); COLOR,URINE YELLOW (Yellow); GLUCOSE, URINE NEGATIVE (Neg); KETONES,URINE NEGATIVE (Neg); LEUKOCYTE ESTERASE ,URINE NEGATIVE (Neg); NITRITES, URINE NEGATIVE (Neg); OCCULT BLOOD,URINE TRACE-INTACT (Neg); PROTEIN,URINE NEGATIVE (Neg); UROBILINOGEN,URINE 0.2 E.U/dL (0.2-1.0)
[2018-03-24 20:55] LABS: UA COLLECTION TYPE STRAIGHT CATH
[2018-03-24 20:57] LABS: BACTERIA,URINE FEW /HPF (Neg); RBC,URINE 0-2 /HPF (0-2); SQUAMOUS EPITHELIAL CELL,UR FEW /LPF (FEW); WBC,URINE 0-4 /HPF (0-4)
[2018-03-24] MEDS ORDERED: piperacillin/tazo 3.375gm/50ml 50 ML IV ONE (22:30)
[2018-03-24] MEDS ORDERED: potassium Cl 20 mEq SR tablet PO PRN (23:20)
[2018-03-24] MEDS ORDERED: morphine 4 MG/ML inj SYRINge IV PRN (23:20)
[2018-03-24] MEDS ORDERED: potassium Cl 40MEQ/NS 500ml 500 ML IV PRN ×2 (23:20)
[2018-03-24] MEDS ORDERED: magnesium 4gm in 100ml NS 100 ML IV PRN (23:20)
[2018-03-24] MEDS ORDERED: magnesium 1gm/100ml D5W IVPB 100 ML IV PRN (23:20)
[2018-03-24] MEDS ORDERED: ondansetron/PF 4mg/2ml inj IV PRN (23:20)
[2018-03-24] MEDS ORDERED: mag hydrox/Alum hydrox/simeth 30ml oral suspension PO PRN (23:20)
[2018-03-24] MEDS ORDERED: docusate sod 100mg capsule PO PRN (23:20)
[2018-03-24] MEDS ORDERED: acetaminophen 325mg tablet PO PRN (23:20)
[2018-03-25 00:30] VITALS: BP 116/62
[2018-03-25] MEDS: normal saline 1000ml 1,000 ML IV SCH ×3 (00:41→13:22)
[2018-03-25] MEDS: piperacillin/tazo 3.375gm/50ml 50 ML IV SCH ×4 (01:37→19:55)
[2018-03-25] MEDS ORDERED: glucagon, human recombinant 1mg kit SUBCUT PRN (04:40)
[2018-03-25] MEDS ORDERED: insulin Lispro (HumaLOG) vial - multi-dose SQ SCH (04:40)
[2018-03-25] MEDS ORDERED: MESSAGE TO PHARMACY PO ONE (04:40)
[2018-03-25] MEDS ORDERED: dextrose ORAL solution 15 GM/59 ML bottle PO PRN ×2 (04:40)
[2018-03-25] MEDS ORDERED: dextrose 50%-water 50ml dispensing syringe IV PRN ×2 (04:40)
[2018-03-25 05:49] LABS: BASOPHILS % (AUTO) 0.2 % (0-1); EOSINOPHILS # (AUTO) 0.3 X10'3 (0-0.9); EOSINOPHILS % (AUTO) 1.5 % (0-6); HEMATOCRIT 29.6 % (35.0-45.0); HEMOGLOBIN 9.9 g/dl (12.0-16.0); LYMPHOCYTES # (AUTO) 2.1 X10'3 (1.1-4.8); LYMPHOCYTES % (AUTO) 13.1 % (21-51); MEAN CORPUSCULAR HEMOGLOBIN 29.3 PG (27.0-31.0); MEAN CORPUSCULAR HGB CONC 33.5 % (33.0-36.5); MEAN CORPUSCULAR VOLUME 87.4 FL (78-98); MEAN PLATELET VOLUME 7.7 FL (7.4-10.4); MONOCYTES # (AUTO) 1.1 X10'3 (0-0.9); NEUTROPHILS # (AUTO) 12.7 X10'3 (1.8-7.7); NEUTROPHILS % (AUTO) 78.2 % (42-75); PLATELET COUNT 327 X10'3 (140-440); RED BLOOD COUNT 3.39 X10'6 (4.20-5.60); RED CELL DISTRIBUTION WIDTH 14.6 % (11.5-14.5); WHITE BLOOD COUNT 16.2 X10'3 (4.5-11.0)
[2018-03-25 06:18] LABS: ALANINE AMINOTRANSFERASE 33 U/L (12-78); ALBUMIN/GLOBULIN RATIO 0.4 (1.1-1.5); ALKALINE PHOSPHATASE 66 IU/L (46-116); ANION GAP 10 (8-16); ASPARTATE AMINO TRANSFERASE 45 U/L (10-37); BILIRUBIN,TOTAL 0.4 MG/DL (0.1-1.0); BLOOD UREA NITROGEN 22 MG/DL (7-18); CALCIUM 8.1 MG/DL (8.5-10.1); CHLORIDE 105 MMOL/L (99-107); CHOL/HDL RATIO 2.7 (0.00-4.99); CHOLESTEROL 100 MG/DL (0-200); GLUCOSE 124 MG/DL (70-104); HDL CHOLESTEROL 37 MG/DL (35-60); LDL CHOLESTEROL 61 MG/DL (50-100); MAGNESIUM 1.7 MG/DL (1.5-2.4); POTASSIUM 3.7 MMOL/L (3.5-5.1); SODIUM 138 MMOL/L (135-145); TOTAL CARBON DIOXIDE 23.2 MMOL/L (24-32); TOTAL PROTEIN 6.6 G/DL (6.4-8.2); TRIGLYCERIDES 33 MG/DL (20-135); eGFR 47 ML/MIN
[2018-03-25 07:17] VITALS: BP 107/53
[2018-03-25] MEDS: K and/or MAG REPLACEMENT MC SCH (07:30)
[2018-03-25] MEDS: metoprolol succinate 25mg (24-HOUR) SR. Tablet PO SCH (09:20)
[2018-03-25] MEDS ORDERED: APIX5TAB3 PO (09:32)
[2018-03-25] MEDS: aspirin 81mg tablet.DR PO SCH (09:52)
[2018-03-25] MEDS: apixaban 5mg tablet PO SCH ×2 (09:52→19:55)
[2018-03-25] MEDS: vancomycin/NS 1 GM ADD-VANTAGE 250 ML IV SCH (10:37)
[2018-03-25] MEDS ORDERED: polyvinyl alcohol ophthalmic drops 15ml bottle EACHEYE PRN (11:30)
[2018-03-25] MEDS: CARBOXYMETHYLCELLULOSE SODIUM 15 ML DROPS EACHEYE PRN (12:22)
[2018-03-25] MEDS ORDERED: bisacodyl 10mg suppository rectal RC STA (13:54)
[2018-03-25] MEDS ORDERED: bisacodyl 10mg suppository rectal RC PRN (13:55)
[2018-03-25] MEDS: gabapentin 300mg capsule PO SCH ×2 (15:08→23:34)
[2018-03-25 18:00] VITALS: BP 121/66
[2018-03-25] MEDS: lactobacillus rhamnosus 10,000 MMU CELLS/CAPSULE PO SCH (19:55)
[2018-03-25] MEDS: dorzolamide/timolol (Cosopt) ophthalmic drops 10ml bottle RIGHTEYE SCH (19:56)
[2018-03-25] MEDS: morphine 4 MG/ML inj SYRINge IV PRN (20:11)
[2018-03-25] MEDS: insulin glargine (Lantus) pen - multi-dose SQ SCH (21:00)
[2018-03-26] VITALS: BP 140/70
[2018-03-26] MEDS: normal saline 1000ml 1,000 ML IV SCH ×2 (01:44→16:55)
[2018-03-26] MEDS: piperacillin/tazo 3.375gm/50ml 50 ML IV SCH ×4 (01:44→19:56)
[2018-03-26 05:36] LABS: BASOPHILS % (AUTO) 0.3 % (0-1); EOSINOPHILS # (AUTO) 0.5 X10'3 (0-0.9); EOSINOPHILS % (AUTO) 5.7 % (0-6); HEMATOCRIT 28.7 % (35.0-45.0); HEMOGLOBIN 9.4 g/dl (12.0-16.0); LYMPHOCYTES # (AUTO) 1.5 X10'3 (1.1-4.8); LYMPHOCYTES % (AUTO) 17.1 % (21-51); MEAN CORPUSCULAR HEMOGLOBIN 28.8 PG (27.0-31.0); MEAN CORPUSCULAR HGB CONC 32.9 % (33.0-36.5); MEAN CORPUSCULAR VOLUME 87.5 FL (78-98); MEAN PLATELET VOLUME 7.9 FL (7.4-10.4); MONOCYTES # (AUTO) 0.8 X10'3 (0-0.9); MONOCYTES % (AUTO) 9.1 % (2-12); NEUTROPHILS # (AUTO) 6.1 X10'3 (1.8-7.7); NEUTROPHILS % (AUTO) 67.8 % (42-75); PLATELET COUNT 327 X10'3 (140-440); RED BLOOD COUNT 3.28 X10'6 (4.20-5.60); RED CELL DISTRIBUTION WIDTH 14.6 % (11.5-14.5)
[2018-03-26 06:22] LABS: CHLORIDE 107 MMOL/L (99-107); GLUCOSE 91 MG/DL (70-104); POTASSIUM 3.4 MMOL/L (3.5-5.1); SODIUM 141 MMOL/L (135-145); TOTAL CARBON DIOXIDE 22.8 MMOL/L (24-32)
[2018-03-26 06:23] LABS: ALANINE AMINOTRANSFERASE 24 U/L (12-78); ALBUMIN 1.9 G/DL (3.4-5.0); ALBUMIN/GLOBULIN RATIO 0.4 (1.1-1.5); ALKALINE PHOSPHATASE 59 IU/L (46-116); ANION GAP 11 (8-16); ASPARTATE AMINO TRANSFERASE 19 U/L (10-37); BILIRUBIN,TOTAL 0.3 MG/DL (0.1-1.0); BLOOD UREA NITROGEN 14 MG/DL (7-18); BUN/CREATININE RATIO 13.6 (6.6-38.0); CALCIUM 8.1 MG/DL (8.5-10.1); CREATININE 1.03 MG/DL (0.40-0.90); MAGNESIUM 1.6 MG/DL (1.5-2.4); TOTAL PROTEIN 6.3 G/DL (6.4-8.2); eGFR 51 ML/MIN
[2018-03-26] MEDS: aspirin 81mg tablet.DR PO SCH (07:28)
[2018-03-26] MEDS: apixaban 5mg tablet PO SCH ×2 (07:28→19:56)
[2018-03-26] MEDS: atorvastatin 10mg tablet PO SCH (07:28)
[2018-03-26] MEDS: HYDROchlorothiazide 12.5mg capsule PO SCH (07:28)
[2018-03-26] MEDS: potassium Cl 20 mEq SR tablet PO PRN ×3 (07:28→21:06)
[2018-03-26] MEDS: gabapentin 300mg capsule PO SCH ×3 (07:28→23:41)
[2018-03-26] MEDS: losartan 50mg tablet PO SCH (07:30)
[2018-03-26] MEDS: lactobacillus rhamnosus 10,000 MMU CELLS/CAPSULE PO SCH ×2 (07:31→19:56)
[2018-03-26] MEDS: metoprolol succinate 25mg (24-HOUR) SR. Tablet PO SCH (07:31)
[2018-03-26] MEDS: levoTHYROXINE 25mcg tablet PO SCH (07:31)
[2018-03-26] MEDS: dorzolamide/timolol (Cosopt) ophthalmic drops 10ml bottle RIGHTEYE SCH ×2 (07:31→19:56)
[2018-03-26] MEDS: CARBOXYMETHYLCELLULOSE SODIUM 15 ML DROPS EACHEYE PRN (07:38)
[2018-03-26 07:42] VITALS: BP 129/70
[2018-03-26] MEDS ORDERED: levoTHYROXINE 75mcg tablet PO SCH (08:00)
[2018-03-26] MEDS: K and/or MAG REPLACEMENT MC SCH (08:00)
[2018-03-26] MEDS: vancomycin/NS 1 GM ADD-VANTAGE 250 ML IV SCH (10:13)
[2018-03-26 12:00] VITALS: BP 116/68
[2018-03-26 18:00] VITALS: BP 130/66
[2018-03-26] MEDS: morphine 4 MG/ML inj SYRINge IV PRN (20:03)
[2018-03-26] MEDS: insulin glargine (Lantus) pen - multi-dose SQ SCH (21:00)
[2018-03-27] VITALS: BP 133/66
[2018-03-27] MEDS: piperacillin/tazo 3.375gm/50ml 50 ML IV SCH ×2 (01:31→07:59)
[2018-03-27 04:49] LABS: BASOPHILS % (AUTO) 0.2 % (0-1); EOSINOPHILS # (AUTO) 0.4 X10'3 (0-0.9); EOSINOPHILS % (AUTO) 4.6 % (0-6); HEMATOCRIT 29.6 % (35.0-45.0); LYMPHOCYTES # (AUTO) 1.8 X10'3 (1.1-4.8); LYMPHOCYTES % (AUTO) 19.9 % (21-51); MEAN CORPUSCULAR HEMOGLOBIN 29.6 PG (27.0-31.0); MEAN CORPUSCULAR HGB CONC 33.9 % (33.0-36.5); MEAN CORPUSCULAR VOLUME 87.4 FL (78-98); MONOCYTES # (AUTO) 0.8 X10'3 (0-0.9); MONOCYTES % (AUTO) 8.4 % (2-12); NEUTROPHILS # (AUTO) 6.1 X10'3 (1.8-7.7); NEUTROPHILS % (AUTO) 66.9 % (42-75); PLATELET COUNT 332 X10'3 (140-440); RED BLOOD COUNT 3.39 X10'6 (4.20-5.60); RED CELL DISTRIBUTION WIDTH 14.1 % (11.5-14.5); WHITE BLOOD COUNT 9.1 X10'3 (4.5-11.0)
[2018-03-27 05:00] LABS: ALANINE AMINOTRANSFERASE 27 U/L (12-78); ALBUMIN/GLOBULIN RATIO 0.4 (1.1-1.5); ALKALINE PHOSPHATASE 63 IU/L (46-116); ANION GAP 10 (8-16); ASPARTATE AMINO TRANSFERASE 18 U/L (10-37); BILIRUBIN,TOTAL 0.3 MG/DL (0.1-1.0); BLOOD UREA NITROGEN 10 MG/DL (7-18); BUN/CREATININE RATIO 8.5 (6.6-38.0); CALCIUM 8.2 MG/DL (8.5-10.1); CHLORIDE 108 MMOL/L (99-107); CREATININE 1.18 MG/DL (0.40-0.90); GLUCOSE 87 MG/DL (70-104); MAGNESIUM 1.5 MG/DL (1.5-2.4); SODIUM 142 MMOL/L (135-145); TOTAL CARBON DIOXIDE 24.3 MMOL/L (24-32); TOTAL PROTEIN 6.7 G/DL (6.4-8.2); eGFR 44 ML/MIN
[2018-03-27] MEDS: normal saline 1000ml 1,000 ML IV SCH (05:31)
[2018-03-27 07:00] VITALS: BP 126/66
[2018-03-27] MEDS: dorzolamide/timolol (Cosopt) ophthalmic drops 10ml bottle RIGHTEYE SCH (07:57)
[2018-03-27] MEDS: levoTHYROXINE 25mcg tablet PO SCH (07:57)
[2018-03-27] MEDS: aspirin 81mg tablet.DR PO SCH (07:58)
[2018-03-27] MEDS: lactobacillus rhamnosus 10,000 MMU CELLS/CAPSULE PO SCH (07:58)
[2018-03-27] MEDS: atorvastatin 10mg tablet PO SCH (07:58)
[2018-03-27] MEDS: HYDROchlorothiazide 12.5mg capsule PO SCH (07:58)
[2018-03-27] MEDS: losartan 50mg tablet PO SCH (07:58)
[2018-03-27] MEDS: gabapentin 300mg capsule PO SCH (07:58)
[2018-03-27] MEDS: metoprolol succinate 25mg (24-HOUR) SR. Tablet PO SCH (07:58)
[2018-03-27] MEDS: apixaban 5mg tablet PO SCH (07:58)
[2018-03-27] MEDS: K and/or MAG REPLACEMENT MC SCH (08:00)
[2018-03-27] MEDS ORDERED: LACT1CAP26 PO (10:03)
[2018-03-27] MEDS ORDERED: AMOX-419 PO (10:03)
[2018-03-27] MEDS ORDERED: METF500T6 PO (10:03)
[2018-03-27] MEDS: vancomycin/NS 1 GM ADD-VANTAGE 250 ML IV SCH (10:39)
[2018-03-27] MEDS ORDERED: LEVO50TA8 PO (18:20)
[2018-03-28] MEDS ORDERED: VANCOMYCIN LEVEL IV ONE (09:30)
== END 2018-03-27 15:58 | disposition home health service (06) | DRG 862 ==
LOC: ER 18:59 → ED HOLD 23:19 → SUR 3N 03-25 00:20
PROVIDERS: ADMIT Family Medicine; ATTEND Family Medicine
DX: T81.4XXA Infection following a procedure, initial encounter (principal); A41.9 Sepsis, unspecified organism; E43 Unspecified severe protein-calorie malnutrition; D64.9 Anemia, unspecified; E03.9 Hypothyroidism, unspecified; E78.00 Pure hypercholesterolemia, unspecified; E78.5 Hyperlipidemia, unspecified; N18.9 Chronic kidney disease, unspecified; E11.22 Type 2 diabetes mellitus with diabetic chronic kidney disease; E11.21 Type 2 diabetes mellitus with diabetic nephropathy; M54.9 Dorsalgia, unspecified; G89.29 Other chronic pain; I12.9 Hypertensive chronic kidney disease with stage 1 through stage 4 chronic kidney disease, or unspecified chronic kidney disease; Y83.8 Other surgical procedures as the cause of abnormal reaction of the patient, or of later complication, without mention of misadventure at the time of the procedure; Z90.710 Acquired absence of both cervix and uterus; Z79.01 Long term (current) use of anticoagulants; Z79.82 Long term (current) use of aspirin; Z79.899 Other long term (current) drug therapy; Z79.890 Hormone replacement therapy; Z86.718 Personal history of other venous thrombosis and embolism; Z68.21 Body mass index [BMI] 21.0-21.9, adult; Y92.89 Other specified places as the place of occurrence of the external cause
CPT/HCPCS: 36415; 71045; 74176; 80053; 80061; 81001; 82948; 83036; 83605; 83735; 84145; 84443; 85025; 85610; 85730; 87040; 87070; 96365; 99285; A6213; A6449; J1815; J2270; J2543; J3370; J7030

== ENCOUNTER 2018-03-30 08:52 | Day surgery (SDC) | payer MEDICARE, OTHER ==
[~2018-03-30 08:52] MED LIST changes: +AMOX-419 PO; -ESOM40CA30 PO; -EST1T PO; -FLUO10CA30 PO; +LACT1CAP26 PO; -LEVO50TA67 PO; +LEVO50TA8 PO; +METF500T6 PO; -MULT-1073 PO; -NEBI5TAB10 PO; -OMEG1CAP46 PO
[2018-03-30] MEDS ORDERED: LIDOcaine/PRILOcaine 5gm cream TP ONE (09:46)
== END 2018-03-30 10:43 | disposition home or self-care (01) ==
LOC: WOUND CARE 08:52
PROVIDERS: ATTEND Surgery
DX: T81.89XD Other complications of procedures, not elsewhere classified, subsequent encounter (principal); L98.492 Non-pressure chronic ulcer of skin of other sites with fat layer exposed; I10 Essential (primary) hypertension; K21.9 Gastro-esophageal reflux disease without esophagitis; E78.5 Hyperlipidemia, unspecified; E03.9 Hypothyroidism, unspecified; E44.0 Moderate protein-calorie malnutrition; G89.29 Other chronic pain; E78.00 Pure hypercholesterolemia, unspecified; F41.9 Anxiety disorder, unspecified; F03.90 Unspecified dementia, unspecified severity, without behavioral disturbance, psychotic disturbance, mood disturbance, and anxiety; Z90.710 Acquired absence of both cervix and uterus; Z68.21 Body mass index [BMI] 21.0-21.9, adult; Z79.82 Long term (current) use of aspirin; Z79.899 Other long term (current) drug therapy; Z86.718 Personal history of other venous thrombosis and embolism; Z79.01 Long term (current) use of anticoagulants; Y83.8 Other surgical procedures as the cause of abnormal reaction of the patient, or of later complication, without mention of misadventure at the time of the procedure
CPT/HCPCS: 17250; A6021; A6206; A6213

== ENCOUNTER 2018-04-13 08:55 | Day surgery (SDC) | payer MEDICARE, OTHER ==
[~2018-04-13 08:55] MED LIST changes: +METF-950 PO; -METF500T6 PO
== END 2018-04-13 10:40 | disposition home or self-care (01) ==
LOC: WOUND CARE 08:55
PROVIDERS: ATTEND Surgery
DX: T81.89XD Other complications of procedures, not elsewhere classified, subsequent encounter (principal); L98.492 Non-pressure chronic ulcer of skin of other sites with fat layer exposed; I10 Essential (primary) hypertension; K21.9 Gastro-esophageal reflux disease without esophagitis; E78.5 Hyperlipidemia, unspecified; E03.9 Hypothyroidism, unspecified; E44.0 Moderate protein-calorie malnutrition; G89.29 Other chronic pain; E78.00 Pure hypercholesterolemia, unspecified; F41.9 Anxiety disorder, unspecified; F03.90 Unspecified dementia, unspecified severity, without behavioral disturbance, psychotic disturbance, mood disturbance, and anxiety; Z90.710 Acquired absence of both cervix and uterus; Z68.21 Body mass index [BMI] 21.0-21.9, adult; Z79.82 Long term (current) use of aspirin; Z79.899 Other long term (current) drug therapy; Z86.718 Personal history of other venous thrombosis and embolism; Z79.01 Long term (current) use of anticoagulants; Y83.8 Other surgical procedures as the cause of abnormal reaction of the patient, or of later complication, without mention of misadventure at the time of the procedure
CPT/HCPCS: 11042; A6021; A6206; A6212

== ENCOUNTER 2018-04-20 08:42 | Day surgery (SDC) | payer MEDICARE, OTHER | END 2018-04-20 09:54 | disposition home or self-care (01) | LOC: WOUND CARE 08:42 | PROVIDERS: ATTEND Surgery | DX: T81.89XD Other complications of procedures, not elsewhere classified, subsequent encounter (principal); L98.492 Non-pressure chronic ulcer of skin of other sites with fat layer exposed; I10 Essential (primary) hypertension; K21.9 Gastro-esophageal reflux disease without esophagitis; E78.5 Hyperlipidemia, unspecified; E03.9 Hypothyroidism, unspecified; E44.0 Moderate protein-calorie malnutrition; G89.29 Other chronic pain; E78.00 Pure hypercholesterolemia, unspecified; F41.9 Anxiety disorder, unspecified; F03.90 Unspecified dementia, unspecified severity, without behavioral disturbance, psychotic disturbance, mood disturbance, and anxiety; Z90.710 Acquired absence of both cervix and uterus; Z68.21 Body mass index [BMI] 21.0-21.9, adult; Z79.82 Long term (current) use of aspirin; Z79.899 Other long term (current) drug therapy; Z86.718 Personal history of other venous thrombosis and embolism; Z79.01 Long term (current) use of anticoagulants; Y83.8 Other surgical procedures as the cause of abnormal reaction of the patient, or of later complication, without mention of misadventure at the time of the procedure | CPT/HCPCS: 97597; A6021; A6206; A6212 ==

== ENCOUNTER 2018-04-27 09:03 | Day surgery (SDC) | payer MEDICARE, OTHER ==
[~2018-04-27 09:03] MED LIST changes: -AMOX-419 PO
[2018-04-27] MEDS ORDERED: LIDOcaine/PRILOcaine 5gm cream TP ONE (09:47)
== END 2018-04-27 10:44 | disposition home or self-care (01) ==
LOC: WOUND CARE 09:03
PROVIDERS: ATTEND Surgery
DX: T81.89XD Other complications of procedures, not elsewhere classified, subsequent encounter (principal); L98.492 Non-pressure chronic ulcer of skin of other sites with fat layer exposed; I10 Essential (primary) hypertension; K21.9 Gastro-esophageal reflux disease without esophagitis; E78.5 Hyperlipidemia, unspecified; E03.9 Hypothyroidism, unspecified; E44.0 Moderate protein-calorie malnutrition; G89.29 Other chronic pain; E78.00 Pure hypercholesterolemia, unspecified; F41.9 Anxiety disorder, unspecified; F03.90 Unspecified dementia, unspecified severity, without behavioral disturbance, psychotic disturbance, mood disturbance, and anxiety; Z90.710 Acquired absence of both cervix and uterus; Z68.21 Body mass index [BMI] 21.0-21.9, adult; Z79.82 Long term (current) use of aspirin; Z79.899 Other long term (current) drug therapy; Z86.718 Personal history of other venous thrombosis and embolism; Z79.01 Long term (current) use of anticoagulants; Y83.8 Other surgical procedures as the cause of abnormal reaction of the patient, or of later complication, without mention of misadventure at the time of the procedure
CPT/HCPCS: 97597; A6021; A6212

== ENCOUNTER 2018-05-04 09:00 | Day surgery (SDC) | payer MEDICARE, OTHER ==
[~2018-05-04 09:00] MED LIST changes: -METF-950 PO
[2018-05-04] MEDS ORDERED: LIDOcaine/PRILOcaine 5gm cream TP ONE (09:44)
== END 2018-05-04 10:37 | disposition home or self-care (01) ==
LOC: WOUND CARE 09:00
PROVIDERS: ATTEND Surgery
DX: T81.89XD Other complications of procedures, not elsewhere classified, subsequent encounter (principal); L98.492 Non-pressure chronic ulcer of skin of other sites with fat layer exposed; I10 Essential (primary) hypertension; K21.9 Gastro-esophageal reflux disease without esophagitis; E78.5 Hyperlipidemia, unspecified; E03.9 Hypothyroidism, unspecified; E44.0 Moderate protein-calorie malnutrition; G89.29 Other chronic pain; E78.00 Pure hypercholesterolemia, unspecified; F41.9 Anxiety disorder, unspecified; F03.90 Unspecified dementia, unspecified severity, without behavioral disturbance, psychotic disturbance, mood disturbance, and anxiety; Z90.710 Acquired absence of both cervix and uterus; Z68.21 Body mass index [BMI] 21.0-21.9, adult; Z79.82 Long term (current) use of aspirin; Z79.899 Other long term (current) drug therapy; Z86.718 Personal history of other venous thrombosis and embolism; Z79.01 Long term (current) use of anticoagulants; Y83.8 Other surgical procedures as the cause of abnormal reaction of the patient, or of later complication, without mention of misadventure at the time of the procedure
CPT/HCPCS: 17250; A6021; A6206; A6212

== ENCOUNTER 2018-05-11 08:43 | Day surgery (SDC) | payer MEDICARE, OTHER ==
[2018-05-11] MEDS ORDERED: LIDOcaine/PRILOcaine 5gm cream TP ONE (09:45)
== END 2018-05-11 10:13 | disposition home or self-care (01) ==
LOC: WOUND CARE 08:43
PROVIDERS: ATTEND Surgery
DX: T81.89XD Other complications of procedures, not elsewhere classified, subsequent encounter (principal); L98.492 Non-pressure chronic ulcer of skin of other sites with fat layer exposed; I10 Essential (primary) hypertension; K21.9 Gastro-esophageal reflux disease without esophagitis; E78.5 Hyperlipidemia, unspecified; E03.9 Hypothyroidism, unspecified; E44.0 Moderate protein-calorie malnutrition; G89.29 Other chronic pain; E78.00 Pure hypercholesterolemia, unspecified; F41.9 Anxiety disorder, unspecified; F03.90 Unspecified dementia, unspecified severity, without behavioral disturbance, psychotic disturbance, mood disturbance, and anxiety; Z90.710 Acquired absence of both cervix and uterus; Z68.21 Body mass index [BMI] 21.0-21.9, adult; Z79.82 Long term (current) use of aspirin; Z79.899 Other long term (current) drug therapy; Z86.718 Personal history of other venous thrombosis and embolism; Z79.01 Long term (current) use of anticoagulants; Y83.8 Other surgical procedures as the cause of abnormal reaction of the patient, or of later complication, without mention of misadventure at the time of the procedure
CPT/HCPCS: 17250; A6021; A6212

== ENCOUNTER 2018-05-18 10:15 | Day surgery (SDC) | payer MEDICARE, OTHER | END 2018-05-18 11:16 | disposition home or self-care (01) | LOC: WOUND CARE 10:15 | PROVIDERS: ATTEND Surgery | DX: T81.89XD Other complications of procedures, not elsewhere classified, subsequent encounter (principal); L98.492 Non-pressure chronic ulcer of skin of other sites with fat layer exposed; I10 Essential (primary) hypertension; K21.9 Gastro-esophageal reflux disease without esophagitis; E78.5 Hyperlipidemia, unspecified; E03.9 Hypothyroidism, unspecified; E44.0 Moderate protein-calorie malnutrition; G89.29 Other chronic pain; E78.00 Pure hypercholesterolemia, unspecified; F41.9 Anxiety disorder, unspecified; F03.90 Unspecified dementia, unspecified severity, without behavioral disturbance, psychotic disturbance, mood disturbance, and anxiety; Z90.710 Acquired absence of both cervix and uterus; Z68.21 Body mass index [BMI] 21.0-21.9, adult; Z79.82 Long term (current) use of aspirin; Z79.899 Other long term (current) drug therapy; Z86.718 Personal history of other venous thrombosis and embolism; Z79.01 Long term (current) use of anticoagulants; Y83.8 Other surgical procedures as the cause of abnormal reaction of the patient, or of later complication, without mention of misadventure at the time of the procedure | CPT/HCPCS: 17250; A6021; A6212 ==

== ENCOUNTER 2018-06-01 09:00 | Outpatient (CLI) | payer MEDICARE, OTHER | END 2018-06-01 11:03 | disposition home or self-care (01) | LOC: WOUND CARE 09:00 → EDSTATUS 09:00 → WOUND CARE 11:03 | PROVIDERS: ATTEND Surgery | DX: T81.89XD Other complications of procedures, not elsewhere classified, subsequent encounter (principal); L98.492 Non-pressure chronic ulcer of skin of other sites with fat layer exposed; I10 Essential (primary) hypertension; K21.9 Gastro-esophageal reflux disease without esophagitis; E78.5 Hyperlipidemia, unspecified; E03.9 Hypothyroidism, unspecified; E44.0 Moderate protein-calorie malnutrition; G89.29 Other chronic pain; E78.00 Pure hypercholesterolemia, unspecified; F41.9 Anxiety disorder, unspecified; F03.90 Unspecified dementia, unspecified severity, without behavioral disturbance, psychotic disturbance, mood disturbance, and anxiety; Z90.710 Acquired absence of both cervix and uterus; Z68.21 Body mass index [BMI] 21.0-21.9, adult; Z79.82 Long term (current) use of aspirin; Z79.899 Other long term (current) drug therapy; Z86.718 Personal history of other venous thrombosis and embolism; Z79.01 Long term (current) use of anticoagulants; Y83.8 Other surgical procedures as the cause of abnormal reaction of the patient, or of later complication, without mention of misadventure at the time of the procedure | CPT/HCPCS: 99214 ==

== ENCOUNTER 2020-10-02 16:00 | Emergency (ER) | payer MEDICARE, OTHER ==
[~2020-10-02] VITALS: Ht 160 cm; Wt 61.7 kg
[~2020-10-02 16:00] MED LIST changes: -VALS1TAB75 PO; +VALS1TAB76 PO
[2020-10-02 16:12] VITALS: BP 125/42
== END 2020-10-02 17:38 | disposition home or self-care (01) ==
LOC: ER 16:01
DX: R19.03 Right lower quadrant abdominal swelling, mass and lump (principal); E78.00 Pure hypercholesterolemia, unspecified; G89.29 Other chronic pain; Z86.718 Personal history of other venous thrombosis and embolism; Z90.710 Acquired absence of both cervix and uterus; Z98.890 Other specified postprocedural states; Z72.89 Other problems related to lifestyle; Z79.82 Long term (current) use of aspirin; Z79.899 Other long term (current) drug therapy
CPT/HCPCS: 76882; 99284

== ENCOUNTER 2021-04-07 02:56 | Inpatient (IN) | payer MEDICARE, OTHER ==
[~2021-04-07] VITALS: Ht 167.6 cm; Wt 63.6 kg
[~2021-04-07 02:56] MED LIST changes: +APIX2.5T PO; -APIX5TAB3 PO; -ASPI-611 PO; -DORZ10DR18 RIGHTEYE; +FLUO10CA28 PO; -GABA-532 PO; -LACT1CAP26 PO; +TIMO5SOL8 EACHEYE
[2021-04-07] MEDS ORDERED: aspirin 81mg tab.chew PO ONE (03:00)
[2021-04-07] MEDS ORDERED: normal saline 1000ml 1,000 ML IV ONE (03:00)
[2021-04-07 04:18] LABS: BASOPHILS # (AUTO) 0.1 X10'3 (0-0.2); BASOPHILS % (AUTO) 0.5 % (0-1); EOSINOPHILS # (AUTO) 0.1 X10'3 (0-0.9); EOSINOPHILS % (AUTO) 1.3 % (0-6); HEMATOCRIT 44.1 % (35.0-45.0); HEMOGLOBIN 14.6 g/dl (12.0-16.0); LYMPHOCYTES # (AUTO) 1.1 X10'3 (1.1-4.8); LYMPHOCYTES % (AUTO) 9.8 % (21-51); MEAN CORPUSCULAR HEMOGLOBIN 29.6 PG (27.0-31.0); MEAN CORPUSCULAR HGB CONC 33.1 g/dL (33.0-36.5); MEAN CORPUSCULAR VOLUME 89.5 FL (78-98); MEAN PLATELET VOLUME 8.1 FL (7.4-10.4); MONOCYTES # (AUTO) 1.3 X10'3 (0-0.9); MONOCYTES % (AUTO) 11.9 % (2-12); NEUTROPHILS # (AUTO) 8.3 X10'3 (1.8-7.7); NEUTROPHILS % (AUTO) 76.5 % (42-75); PLATELET COUNT 232 X10'3 (140-440); RED BLOOD COUNT 4.93 X10'6 (4.20-5.60); RED CELL DISTRIBUTION WIDTH 14.2 % (11.5-14.5); WHITE BLOOD COUNT 10.8 X10'3 (4.5-11.0)
[2021-04-07 04:30] LABS: D-DIMER 0.93 MG/L FEU (0-0.50); PARTIAL THROMBOPLASTIN TIME 32 SECONDS (22-32)
[2021-04-07 04:34] LABS: ALANINE AMINOTRANSFERASE 13 U/L (12-78); ALBUMIN 2.8 G/DL (3.4-5.0); ALBUMIN/GLOBULIN RATIO 0.6 (1.1-1.5); ALKALINE PHOSPHATASE 76 IU/L (46-116); ANION GAP 12 (8-16); ASPARTATE AMINO TRANSFERASE 19 U/L (10-37); BILIRUBIN,TOTAL 0.4 MG/DL (0.1-1.0); BLOOD UREA NITROGEN 28 MG/DL (7-18); BUN/CREATININE RATIO 21.1 (6.6-38.0); CALCIUM 8.4 MG/DL (8.5-10.1); CHLORIDE 101 MMOL/L (99-107); CREATININE 1.33 MG/DL (0.40-0.90); GLUCOSE 182 MG/DL (70-104); POTASSIUM 3.8 MMOL/L (3.5-5.1); SODIUM 137 MMOL/L (135-145); TOTAL CARBON DIOXIDE 23.7 MMOL/L (24-32); TOTAL PROTEIN 7.6 G/DL (6.4-8.2); eGFR 38 ML/MIN
[2021-04-07] MEDS ORDERED: diltiazem 5mg/ml 5ml inj. IV ONE (04:35)
[2021-04-07 04:40] LABS: C-REACTIVE PROTEIN 5.49 MG/DL (0.0-0.5); MAGNESIUM 1.6 MG/DL (1.5-2.4)
[2021-04-07] MEDS ORDERED: diltiazem 5mg/ml 5ml inj. IV PRN ×2 (04:50→05:05)
[2021-04-07] MEDS ORDERED: normal saline 1000ML IV soln IVB ONE (05:35)
[2021-04-07] MEDS ORDERED: magnesium 4gm in 100ml NS 100 ML IV PRN (07:25)
[2021-04-07] MEDS ORDERED: magnesium 2GM in 50ml NS 50 ML IV PRN (07:25)
[2021-04-07] MEDS ORDERED: ondansetron/PF 4mg/2ml inj IV PRN (07:25)
[2021-04-07] MEDS ORDERED: potassium Cl 20 mEq SR tablet PO PRN ×2 (07:25)
[2021-04-07] MEDS ORDERED: magnesium Cl slow-release 64mg tablet PO PRN (07:25)
[2021-04-07] MEDS ORDERED: acetaminophen 325mg tablet PO PRN (07:25)
[2021-04-07] MEDS ORDERED: potassium Cl 40MEQ/1/2NS 520ml 520 ML IV PRN ×2 (07:25)
[2021-04-07] MEDS: K and/or MAG REPLACEMENT MC SCH (08:00)
--- NOTE | 2021-04-07 10:14 | NUR ---
PATIENT TO RESTROOM, NO ASSIST NEED.
--- NOTE | 2021-04-07 21:43 | NUR ---
PT CONFUSED REQUESTS HER PURSE BE BROUGHT FROM UPSTAIRS. CONTACTER HER FRIEND WHO REPORTS HE HAS THE BAG AT HOME, RE-ORIENTED PT. TO SITUATION. SHE IS AGREEABLE. [employer]ESSOR FOUND PT AT THE END OF HER BED OFF ALL LEADS REQUESTING A WALK TO THE BATHROOM. PT AMBULATORY AND PLACED BACK ON MONITOR HR REMAINS IN THE 90'S REQUESTED BED ALARM DUE TO FALL RISK AND NOT ENOUGH STAFF TO SAFELY MONITOR THE PT.
[2021-04-07] MEDS: metoprolol succinate 25mg (24-HOUR) SR. Tablet PO SCH (21:50)
[2021-04-08] MEDS: K and/or MAG REPLACEMENT MC SCH ×2 (01:22→08:00)
[2021-04-08 01:45] VITALS: BP 150/75
[2021-04-08 06:00] VITALS: BP 163/89
[2021-04-08 06:24] LABS: BASOPHILS % (AUTO) 0.4 % (0-1); EOSINOPHILS # (AUTO) 0.1 X10'3 (0-0.9); EOSINOPHILS % (AUTO) 0.7 % (0-6); HEMATOCRIT 40.3 % (35.0-45.0); HEMOGLOBIN 13.4 g/dl (12.0-16.0); LYMPHOCYTES # (AUTO) 1.6 X10'3 (1.1-4.8); LYMPHOCYTES % (AUTO) 16.4 % (21-51); MEAN CORPUSCULAR HEMOGLOBIN 29.8 PG (27.0-31.0); MEAN CORPUSCULAR HGB CONC 33.3 g/dL (33.0-36.5); MEAN CORPUSCULAR VOLUME 89.4 FL (78-98); MEAN PLATELET VOLUME 8.3 FL (7.4-10.4); MONOCYTES # (AUTO) 1.3 X10'3 (0-0.9); MONOCYTES % (AUTO) 13.1 % (2-12); NEUTROPHILS % (AUTO) 69.4 % (42-75); PLATELET COUNT 253 X10'3 (140-440); RED CELL DISTRIBUTION WIDTH 14.3 % (11.5-14.5)
--- NOTE | 2021-04-08 06:30 | NUR ---
Patient in room [id number] 3028. I have received report from Demetrio ROME and had the opportunity to ask questions and assume patient care.
--- NOTE | 2021-04-08 06:30 | NUR ---
PT IS DRINKING AND EATING NORMALLY AND AMBULATING TO THE BATHROOM TO VOID
[2021-04-08 06:55] LABS: ALBUMIN 2.8 G/DL (3.4-5.0); ANION GAP 7 (8-16); BLOOD UREA NITROGEN 18 MG/DL (7-18); CALCIUM 8.6 MG/DL (8.5-10.1); CHLORIDE 101 MMOL/L (99-107); CREATININE 1.06 MG/DL (0.40-0.90); GLUCOSE 144 MG/DL (70-104); MAGNESIUM 1.9 MG/DL (1.5-2.4); POTASSIUM 3.5 MMOL/L (3.5-5.1); SODIUM 137 MMOL/L (135-145); TOTAL CARBON DIOXIDE 28.6 MMOL/L (24-32); eGFR 49 ML/MIN
--- NOTE | 2021-04-08 07:05 | NUR ---
Problems reprioritized. Patient report given, questions answered & plan of care reviewed with KASEY. Addendum: 04/08/21 at 0706 by Balbir Delvalle RN Amended: Links added.
--- NOTE | 2021-04-08 07:29 | NUR ---
Medications metoprolol was due on noc shift, med not given. I non admin med.
[2021-04-08] MEDS ORDERED: timolol 0.5% ophthalmic solution 5ml bottle EACHEYE SCH (08:00)
[2021-04-08] MEDS ORDERED: apixaban 2.5mg tablet PO SCH (08:00)
[2021-04-08] MEDS ORDERED: HYDROchlorothiazide 12.5mg capsule PO SCH (08:00)
[2021-04-08] MEDS ORDERED: losartan 50mg tablet PO SCH (08:00)
[2021-04-08] MEDS: FLUoxetine 10mg capsule PO SCH ×2 (08:00→08:57)
[2021-04-08] MEDS: metoprolol succinate 25mg (24-HOUR) SR. Tablet PO SCH (08:56)
[2021-04-08 11:00] VITALS: BP 147/83
--- NOTE | 2021-04-08 12:56 | NUR ---
Patient safe for discharge per doctors orders. Medications and discharge instructions discussed, with ability for patient and friend to ask questions. PIV discontinued with cannula intact intact. Telemetry discontinued. Belongings sent to with patient. Wheeled to lobby via nurse. Went home in private vehicle with friend.
[2021-04-08] MEDS ORDERED: atorvastatin 10mg tablet PO SCH (21:00)
== END 2021-04-08 12:56 | disposition home or self-care (01) | DRG 682 ==
LOC: ER 02:56 → UNDOADMIN 07:23 → ED HOLD 07:23 → PCU 3S 04-08 01:45
PROVIDERS: ADMIT Internal Medicine; ATTEND Internal Medicine
DX: N17.0 Acute kidney failure with tubular necrosis (principal); I21.A1 Myocardial infarction type 2; I48.20 Chronic atrial fibrillation, unspecified; E03.9 Hypothyroidism, unspecified; E78.00 Pure hypercholesterolemia, unspecified; E78.5 Hyperlipidemia, unspecified; G89.29 Other chronic pain; M54.9 Dorsalgia, unspecified; T50.2X5A Adverse effect of carbonic-anhydrase inhibitors, benzothiadiazides and other diuretics, initial encounter; Z60.2 Problems related to living alone; R19.7 Diarrhea, unspecified; E86.0 Dehydration; F32.9 Major depressive disorder, single episode, unspecified; I10 Essential (primary) hypertension; Z79.01 Long term (current) use of anticoagulants; Z86.16 Personal history of COVID-19; Z90.710 Acquired absence of both cervix and uterus; Z86.718 Personal history of other venous thrombosis and embolism; Z79.899 Other long term (current) drug therapy; Y92.89 Other specified places as the place of occurrence of the external cause
CPT/HCPCS: 36415; 71045; 80048; 80053; 83735; 83880; 84145; 84443; 84484; 85025; 85379; 85610; 85651; 85730; 86140; 87081; 87635; 93005; 93306; 96360; 99291; C9803; G0378; J3490; J7030

== ENCOUNTER 2022-04-06 15:06 | Emergency (ER) | payer MEDICARE, OTHER ==
[~2022-04-06] VITALS: Ht 167.6 cm; Wt 66.6 kg
[~2022-04-06 15:06] MED LIST changes: +SIMV-341 PO; -SIMV10TA2 PO
[2022-04-06] MEDS ORDERED: TETanus/Pertussis (Acell)/Diphther VAC/PF (Tdap-Adult) 0.5ml syringe IMVAC ONE (15:55)
[2022-04-06] MEDS ORDERED: fentaNYL/PF 50MCG/1 ML 2ML syringe IV ONE (16:25)
--- NOTE | 2022-04-06 16:49 | NUR ---
TRAUMA CLEARED PER EDMD [facility]
[2022-04-06] MEDS ORDERED: etomidate 2mg/ml inj. IV ONE (16:55)
[2022-04-06 17:48] VITALS: BP 149/78
== END 2022-04-06 18:05 | disposition home or self-care (01) ==
LOC: ER 15:07
DX: S43.004A Unspecified dislocation of right shoulder joint, initial encounter (principal); S09.90XA Unspecified injury of head, initial encounter; S80.211A Abrasion, right knee, initial encounter; I10 Essential (primary) hypertension; E78.00 Pure hypercholesterolemia, unspecified; G89.29 Other chronic pain; M54.50 Low back pain, unspecified; Z90.710 Acquired absence of both cervix and uterus; W19.XXXA Unspecified fall, initial encounter; Y93.89 Activity, other specified; Y92.89 Other specified places as the place of occurrence of the external cause; Y99.8 Other external cause status
CPT/HCPCS: 23650; 70450; 72125; 73030; 90471; 90715; 94799; 99285; J3010; J3490; J7030; 94760; A4565; A4620

== ENCOUNTER 2022-04-12 10:41 | Emergency (ER) | payer MEDICARE, OTHER ==
[~2022-04-12] VITALS: Ht 152.4 cm; Wt 54.5 kg
[2022-04-12 10:49] VITALS: BP 134/67
[2022-04-12] MEDS ORDERED: mupirocin 2% ointment 22GM TP STA (12:58)
== END 2022-04-12 13:28 | disposition home or self-care (01) ==
LOC: ER 10:41
DX: S01.81XD Laceration without foreign body of other part of head, subsequent encounter (principal); L03.211 Cellulitis of face; R42 Dizziness and giddiness; R11.0 Nausea; E78.00 Pure hypercholesterolemia, unspecified; I10 Essential (primary) hypertension; G89.29 Other chronic pain; Z86.718 Personal history of other venous thrombosis and embolism; Z90.710 Acquired absence of both cervix and uterus; Z98.890 Other specified postprocedural states; Z72.89 Other problems related to lifestyle; Z79.899 Other long term (current) drug therapy; X58.XXXD Exposure to other specified factors, subsequent encounter
CPT/HCPCS: 99283